=== PATIENT | female | born 1960 | race Caucasian/White ===

== ENCOUNTER 2023-04-26 09:38 | Emergency (ER) | payer BC, SELFPAY ==
[2023-04-26] VITALS (8 sets, daily range): BP systolic 141–166; BP diastolic 75–83; PULSE 66–76; RESP 11–18; TEMP 36.2; O2SAT 99–100
--- NOTE | ~2023-04-26 | XR_ITS ---
EXAMINATION: XR thoracic spine 2V DATE: 04/26/2023 13:11 INDICATION: Thoracic compression fractures seen on chest x-ray TECHNIQUE: One AP, lateral and lateral swimmer's views of the thoracic spine were obtained. COMPARISON: Chest radiograph dated 04/26/2023 FINDINGS: 10 degrees mid thoracic levocurvature. Sagittal alignment is normal. Age-indeterminate T7 compression fracture with one third anterior vertebral body height loss. Remaining vertebral body heights are no rmal. Mild disc height loss at multiple levels throughout the thoracic spine. Visualized portions of the lungs are clear with no pneumothorax or pleural effusion. IMPRESSION: 1. Age-indeterminate T7 compression fracture with one third anterior vertebral body height loss. Reviewed, dictated and finalized at location A.
--- NOTE | ~2023-04-26 | XR_ITS ---
EXAMINATION: XR chest 2V DATE: 04/26/2023 10:25 INDICATION: Lightheadedness TECHNIQUE: PA and lateral views of the chest are obtained. COMPARISON: None available FINDINGS: The lungs are free of acute opacities. No pleural effusion or pneumothorax. The cardiomedia stinal silhouette is normal. There is a compression fracture of T7 with approximately 50% loss of ant erior vertebral body height. IMPRESSION: 1. No acute cardiopulmonary abnormality. 2. Age indeterminate T7 compression fracture. Reviewed, dictated and finalized at location L.
--- NOTE | 2023-04-26 09:42 | ECG_ITS ---
Measurements Intervals [place] Rate: 66 P: 49 KS: 157 QRS: 51 QRSD: 90 T: 55 QT: 381 QTc: 400 Interpretive Statements SINUS RHYTHM BASELINE ARTIFACT- I, III, AVR, AVL, AVF, V4 NORMAL ECG NO PREVIOUS ECG AVAILABLE FOR COMPARISON Electronically Signed On 04-26-2023 10:45:52 CDT by Danilo Weiss D.O.
--- NOTE | 2023-04-26 09:51 | ED.DIZZY ---
HPI - Dizziness General Chief Complaint: Dizziness Stated Complaint: chest pain Time Seen by Provider: 04/26/23 09:43 Source: patient Mode of arrival: EMS Limitations: no limitations History of Present Illness HPI Narrative: This is a 62-year-old female that presents to the emergency department for lightheadedness. Reports she was working out this morning and started to feel lightheaded. She also noted an achy pain in her back between her shoulder blades. She tried to sit down and rest and continued to feel lightheaded. She took her blood pressure and it was elevated. She then took an extra dose of her losartan. She continued to feel lightheaded and started to feel some pressure in her chest. She then called 911. She was transported to the ER for further evaluation. She does report she had not eaten anything before working out this morning. She has been doing a intermittent fasting diet. Denies fever, cough, shortness of breath, recent travel or surgery, numbness or weakness. Related Data Allergies Allergy/AdvReac Type Severity Reaction Status Date / Time No Known Allergies Allergy Verified 04/26/23 09:51 Review of Systems Review of Systems: CONSTITUTIONAL: Denies fever EYES: Denies visual changes CARDIOVASCULAR: Reports chest pain. Denies palpitations, or edema. RESPIRATORY: Denies cough or dyspnea. GASTROINTESTINAL: Denies abdominal pain, nausea, vomiting GENITOURINARY: Denies dysuria or hematuria. MUSCULOSKELETAL: Reports back pain, joint pain, and myalgia. NEUROLOGIC: Denies numbness, or weakness. All systems reviewed & are unremarkable except as noted in HPI and below PMFSH Past Medical History Medical History (Updated 04/26/23 @ 13:05 by Danielle Dwons PA-C) History of hyperlipidemia History of hypertension Social History Social History (Updated 04/26/23 @ 10:13 by Danielle Downs PA-C) Smoking status: Never smoker Exam Narrative: GENERAL: Well-appearing, well-nourished, and in no acute distress. HEAD: Normocephalic, atraumatic. EYES: PERRLA and EOMI. ENT: Nares clear, no rhinorrhea or epistaxis. Mucous membranes moist. Oropharynx without tonsillar hypertrophy exudate or other lesions. Bilateral TMs pearly [place] non-bulging NECK: Supple. No adenopathy or masses. No JVD CHEST: Clear to auscultation. No respiratory distress. No wheezes rales or rhonchi HEART: Regular rate and rhythm. No murmur heard. Normal peripheral pulses. EXTREMITIES: Normal range of motion. No edema. SKIN: Warm, dry, no rash. NEURO: No focal deficits. Alert and oriented x3. Cranial nerves II through XII grossly intact. Normal [id number]. Normal [id number]. Normal gait PSYCH: Normal mood and affect Course Course Emergency Course: Patient and family updated on work-up and agree with plan of care Consultations Consultation #1: Spoke with Dr. Metcalf about patient and workup who will follow up in clinic for further evaluation of electrolyte derangements Date: 04/26/23 Consultation #2: Spoke with Dr. Simpson about patient and workup who will follow up in clinic. Will get dedicated thoracic spine films so they are able to repeat and compare when she follows up. She will get called for an appointment Date: 04/26/23 Vital Signs Vital signs: Vital Signs Temperature 97.1 F L 04/26/23 09:43 Pulse Rate 72 04/26/23 09:43 Respiratory Rate 18 04/26/23 09:43 Blood Pressure 165/83 H 04/26/23 09:43 Pulse Oximetry 99 04/26/23 09:43 Oxygen Delivery Room Air 04/26/23 09:43 Temperature 97.1 F L 04/26/23 09:43 Pulse Rate 66 04/26/23 12:46 Respiratory Rate 11 L 04/26/23 12:46 Blood Pressure 141/75 H 04/26/23 12:46 Pulse Oximetry 100 04/26/23 12:46 Oxygen Delivery Room Air 04/26/23 09:43 MDM - Dizziness MDM Narrative Medical decision making narrative: Patient presents to the emergency department for an episode of lightheadedness today. She is afebrile and nontoxic-appearing. He
[2023-04-26 10:15] LABS: Basophils Absolute Auto 0.1 K/mm3 (0.0-0.1); Basophils Percent Auto 0.8 % (0.2-1.2); Eosinophils Absolute Auto 0.1 K/mm3 (0-0.3); Eosinophils Percent Auto 1.3 % (0-4.4); Hematocrit 40.2 % (37.0-47.0); Hemoglobin 13.5 g/dL (12.0-15.0); Immature Granulocyte Absolute 0.02 K/mm3 (0.00-0.031); Immature Granulocyte Percent A 0.3 % (0-0.5); Lymphocytes Absolute Auto 1.48 K/mm3 (0.9-3.2); Lymphocytes Percent Auto 23.9 % (18.3-44.2); Mean Corpuscular HGB Conc 33.6 g/dl (32-36); Mean Corpuscular Hemoglobin 33.1 pg (26-34); Mean Corpuscular Volume 98.5 fl (80-100); Mean Platelet Volume 10.7 fl (7.4-10.4); Monocytes Absolute Auto 0.7 K/mm3 (0.1-0.6); Monocytes Percent Auto 10.7 % (2.6-8.5); Neutrophils Absolute Auto 3.9 K/mm3 (1.3-6.7); Platelet Count Result 244 k/mm3 (150-375); Red Blood Count 4.08 M/mm3 (4.2-5.4); Red Cell Distribution Width 14.7 % (11.5-14.5); White Blood Count 6.2 K/mm3 (4.5-10.0)
[2023-04-26 10:28] LABS: Appearance Urine Clear (Clear); Bilirubin Urine Negative (Negative); Blood Urine Negative (Negative); Color Urine Yellow (Yellow); Glucose Urine UA Negative (Negative); Ketones Urine Negative (Negative); Leukocyte Esterase Ur Negative LEU/UL (Negative); Nitrate Urine Negative (Negative); Protein Urine Negative (Negative); Specific Grav Ur 1.004 (1.001-1.035); Urobilinogen Urine 0.2 mg/dL (<2.0)
[2023-04-26 10:29] LABS: Alanine Aminotransferase 24 U/L (6-35); Albumin Level 4.9 g/dL (3.5-5.1); Alkaline Phosphatase 57 U/L (38-126); Anion Gap 3 mmol/L (8-16); Aspartate Amino Transferase 41 U/L (14-36); Bilirubin,Total 0.7 mg/dL (0.2-1.3); Blood Urea Nitrogen 10 mg/dL (7-17); Calcium 10.1 mg/dL (8.4-10.2); Carbon Dioxide 32 mmol/L (22-30); Chloride 94 mmol/L (98-107); Estimated CRCL calculation 79 ml/min; Estimated Glomerular Filt Rate > 60; Glucose 93 mg/dL (65-110); Potassium 5.2 mmol/L (3.4-5.0); Sodium 129 mmol/L (137-145)
[2023-04-26 10:31] LABS: Add Urine Microscopic? NO
[2023-04-26 10:41] LABS: Troponin I < 0.012 ng/mL (0.000-0.034)
[2023-04-26] MEDS: SODIUM CHLORIDE 0.9% IV 1,000 ML 999 ML IV CONT (10:43)
== END 2023-04-26 13:15 | disposition home or self-care (01) ==
PROVIDERS: Preventive Medicine Aerospace Medicine; Emergency Provider Physician Assistant; PCP Hospitalist
DX: S22.060A Wedge compression fracture of T7-T8 vertebra, initial encounter for closed fracture (principal); I10 Essential (primary) hypertension; R42 Dizziness and giddiness; E87.5 Hyperkalemia; E87.1 Hypo-osmolality and hyponatremia; E78.5 Hyperlipidemia, unspecified; X50.0XXA Overexertion from strenuous movement or load, initial encounter
CPT/HCPCS: 36415; 71046; 72070; 80053; 81003; 84484; 85025; 93005; 96360; 96361; 99284; J7030

== ENCOUNTER → 2023-06-16 13:06 | Outpatient (CLI) | payer BC, SELFPAY ==
--- NOTE | ~2023-06-16 | XR_ITS ---
EXAMINATION: XR thoracic spine 2V DATE: 06/16/2023 13:18 INDICATION: T7 compression fracture. TECHNIQUE: 2 views of thoracic spine were obtained. COMPARISON: Thoracic spine radiographs 04/26/2023 FINDINGS: There is 5 degrees levocurvature of thoracic spine. There is a compression fracture of T7 w ith 1/5 loss of height. Intervertebral disc heights are normal. There are endplate osteophytes at mul tiple levels. IMPRESSION: 1. Stable compression fracture of T7, likely subacute or chronic. Reviewed, dictated and finalized at location E.
== END ==
PROVIDERS: PCP Neurological Surgery; Visit Provider Neurological Surgery
DX: S22.060D Wedge compression fracture of T7-T8 vertebra, subsequent encounter for fracture with routine healing (principal); X58.XXXD Exposure to other specified factors, subsequent encounter
CPT/HCPCS: 72070

== ENCOUNTER 2025-04-21 21:05 | Emergency (ER) | payer BC, SELFPAY ==
[2025-04-21] VITALS (13 sets, daily range): BP systolic 153–199; BP diastolic 68–101; PULSE 60–68; RESP 12–18; TEMP 36.4; O2SAT 96–100
--- NOTE | ~2025-04-21 | XR_ITS ---
Portable chest x-ray Comparison: 04/26/2023 Clinical History: Lightheaded Findings: Lungs are clear, without focal consolidation or pleural effusion. Cardiomediastinal silho uette is stable. Bones and soft tissues are unremarkable. Impression: Normal chest. Reviewed, dictated and finalized at location . Impression: Normal chest.
--- OUTSIDE RECORDS SUMMARY | 2025-04-21 21:06 | XMS_ITS | Referral Summary ---
Author Organization [facility] Address [address] [place] [address] Phone Care Team Providers Care Bankruptcy Judge Name Role Phone Neymar Metcalf MD Primary Care Provider [phone] Allergies No known active allergies Medications acetaminophen (TYLENOL) 325 mg tablet Take 2 tablets (650 mg total) by mouth every 6 (six) hours as needed for pain Active cholecalciferol (VITAMIN D-3) 5,000 unit tablet Take by mouth daily Active ivp-B8-[id number]-zi my-rww-xhtz-bor 600 mg calcium- 800 unit-50 mg tablet Take by mouth daily Active multivitamin tabletIndicatio ns:Vitamin Deficiency Prevention Take 1 tablet by mouth daily Active ascorbic acid-vitamin E-biotin 7.5-7.5-1,250 mg-unit-mcg tablet,chewable Take by mouth daily Hair skin and nails daily Active fish oil-dha-epa 1,200-144-216 mg capsule Take by mouth daily Active lwontobq-ibjf-p tv0-T-cxbe-bosw 750 mg-644 mg- 30 mg-1 mg tablet Take by mouth daily OSTEOBIFLEX Active collagen, hydrolysate, bovine, (collagen, hydr, bovine,, bulk,) 100 % powder daily OTC powder Act jj losartan (COZAAR) 50 mg tablet Take 2 tablets (100 mg total) by mouth daily 180 tablet 3 5 Active rosuvastatin (CRESTOR) 10 mg tablet TAKE 1 TABLET BY MOUTH EVERY DAY 100 tablet 1 5 Active Active Problems Problem Noted Date Diagnosed Date Personal history of colonic polyps 08/03/2023 Strain of levator scapulae muscle, initial encou nter 07/18/2023 Assessment & Plan (07/18/2023 3:54 PM CDT): Tight trps and levator scapulae musculature. Likely trigger points. Discussed exercises to address. If not improved w home treatments will discuss PT Compression fracture of body of thoracic vertebr a 05/24/2023 Assessment & Plan (05/10/2024 1:01 PM CDT): Stable, well controlled; no further symptoms; healing well Assessment & Plan (11/01/2023 2:15 PM COMPRESSOR OPERATOR ADJUSTER): Stable, well controlled; no significant back pain, patient reports some changes No limitations to activity, no severe symptoms Assessment & Plan (07/18/2023 10:13 AM CDT): denies current associated pain. No LE weakness/tingling/numbness. No bowel or bladder changes. Taking calcium and vit D supplements. Assessment & Plan (06/13/2023 4:51 PM CDT): Stable, patient reports pain is generally limited, has been released to most activities, though still is limiting higher impact activities Continue vitamin D3 5000 units daily; calcium 1200 mg daily Assessment & Plan (05/24/2023 3:45 PM CDT): Continues to have pain in thoracic spine; improving; discussed with patient regular management, including decreased activity bracing as needed Continue with pain management as needed Continue vitamin-D and calcium supplements Will evaluate for underlying cause of compression fracture Osteopenia of hip 05/18/2023 Overview (05/18/2023): 04/2023- -1.6, but has a compression fx in upper back. Assessment & Plan (12/26/2024 12:58 PM CDT): Stable, no falls or fracture, compression fraction upper back was likely not due to osteopenia but mechanical in nature Continue calcium and vitamin-D supplements, regular physical activity Assessment & Plan (05/10/2024 1:01 PM CDT): Stable compression fracture and thoracic vertebrae Continue with calcium and vitamin-D Assessment & Plan (04/09/2024 9:18 AM CDT): We discussed sending her to the [facility] at [place] She declines. Will continue with her calcium and vit D She has started to exercise more run/walking. Will plan to repeat in 2023 Assessment & Plan (11/01/2023 2:15 PM COMPRESSOR OPERATOR ADJUSTER): Compression fracture in upper back; continue to monitor; encouraged calcium and vitamin-D; continue to determine if patient would benefit from medicine for osteoporosis to reduce risk of fracture Assessment & Plan (06/13/2023 4:51 PM CDT): Stable, well controlled; no significant pain limitations due to hip pain; improvement related to physical therapy Well woman exam 01/25/2022 Overview (04/09/2024): Lab: Pap:all good last 2022 wnl Labs with pcp Lynne: due Colonoscopy:2022- she is not sure when she is supposed to go back. BMD:2022 osteopenia. Gardasil: Assessment & Plan (04/09/2024 9:18 AM CDT): Pap done. RTO 12m. I will send the results to the portal. If she has not heard in a week, to call the office. Assessment & Plan (04/04/2023 3:36 PM CDT): Pap done. RTO 12m. I will send the results to the portal. If she has not heard in a week, to call the office. Assessment & Plan (01/25/2022 11:14 AM CDT): Pap done. RTO 12m. I will send the results to the portal. If she has not heard in a week, to call the office. Hypertension, essential 01/04/2022 Assessment & Plan (12/26/2024 12:58 PM CDT): Stable, well controlled, blood pressure mildly elevated today; remain elevated on recheck At this time continue losartan 100 mg daily; will continue to assess in 6 months, if remains elevated, may need additional therapies Assessment & Plan (06/26/2024 2:22 PM CDT): Stable, well controlled; patient is not able to tolerate hydrochlorothiazide due to cramping Continue losartan 50 mg daily Patient reports no chest pain or pressure; and recheck blood pressures returned to normal Patient working on dietary changes to limit caffeine and sodium intake; patient is physically active Assessment & Plan (05/10/2024 1:01 PM CDT): Stable, not well controlled, blood pressure above goal; no chest pain or pressure Patient reports increase intake of salty foods and sugar over the past weekend Does not check often at home Continue hydrochlorothiazide 12.5 mg daily, losartan 50 mg b.i.d. Assessment & Plan (11/01/2023 2:15 PM COMPRESSOR OPERATOR ADJUSTER): Stable, generally well controlled; blood pressure elevated today; patient reports not eating healthier exercising during past 2 weeks No chest pain or pressure Now returning to regular diet Continue losartan 50 mg b.i.d.; continue to monitor closely Assessment & Plan (07/18/2023 3:53 PM CDT): BP well controlled. Currently taking losartan 100 mg Qday. Continue current management Continue losartan 50 mg b.i.d. Assessment & Plan (06/13/2023 4:50 PM CDT): Not well controlled; blood pressure elevated today; elevated on recheck Patient reports home systolic measurements are usually in the 120s to 130; reports no chest pain pressure orthostatics Continue losartan 50 mg b.i.d.; continue to work on lifestyle changes, including black garlic and regular physical activity including increasing intensity aerobic activity Follow-up in 4 weeks; blood pressure remains elevated will start 2nd medication Assessment & Plan (05/24/2023 3:45 PM CDT): Blood pressure elevated today in clinic; patient reports elevated blood pressures recently May be secondary to chronic pain Continue losartan 50 mg b.i.d.; will continue to evaluate as pain resolves Assessment & Plan (01/10/2023 4:56 PM CDT): bp elevated initially; improved on recheck No chest pain or pressure, no headaches Continue with home measurements, if elevated at home too, would recommend increase dose of medicatoin Continue Losartan 50 mg daily Assessment & Plan (07/12/2022 9:38 AM CDT): Stable, well controlled; blood pressure at target, patient reports no chest pains headaches except for TMJ Continue losartan 50 mg daily Assessment & Plan (04/26/2022 4:36 PM CDT): Stable, well controlled; blood pressure at target today Patient reports that in general her blood pressure spikes in the afternoon Will adjust medications; take losartan 25 mg twice daily, in morning and early afternoon to help control late afternoon she has Will adjust medication with next appointment if patient continues to have elevated blood pressures Assessment & Plan (01/04/2022 3:45 PM CDT): Stable, well controlled; blood pressure at target today, patient reports no chest pain does peripheral edema Continue losartan 25 mg daily Dyslipidemia 01/04/2022 Assessment & Plan (12/26/2024 12:58 PM CDT): Total cholesterol effective, LDL at goal; HDL high; continue to monitor cholesterol levels regularly, continue with current dietary and activity levels Assessment & Plan (05/10/2024 1:01 PM CDT): Stable, well controlled, elevated HDL with normal LDL Will continue to monitor closely, continue rosuvastatin 10 mg daily Assessment & Plan (11/01/2023 2:15 PM COMPRESSOR OPERATOR ADJUSTER): Stable, well controlled; HDL cholesterol elevated causing elevated total cholesterol Continue rosuvastatin 10 mg daily Assessment & Plan (07/18/2023 3:54 PM CDT): Elevated total Cholesterol, due to high HDL; normal LDL Continue rosuvastatin 10 mg daily Assessment & Plan (06/13/2023 4:50 PM CDT): Stable, well controlled Elevated total cholesterol with near optimal LDL cholesterol; continue rosuvastatin 10 mg daily Assessment & Plan (01/10/2023 4:56 PM CDT): Stable, well controlled; no myalgias Continue Rosuvastatin 10 mg daily Will get CT Coronary Calcium Score to evaluate for risk Assessment & Plan (07/12/2022 9:38 AM CDT): Stable, elevated total cholesterol with normal LDL, HDL at 110 Encouraged continued low-fat high-fiber diet; appropriate aerobic exercise Will continue to monitor Assessment & Plan (04/26/2022 4:36 PM CDT): Stable, well controlled; continue with Crestor 10 mg daily Assessment & Plan (01/04/2022 3:45 PM CDT): Stable, draw labs today to evaluate for control of cholesterol levels; patient reports generally has low-fat high-fiber diet Continue Crestor 10 mg daily as patient reports no side effects from medication Dupuytren's contracture of both hands 01/04/2022 Assessment & Plan (12/26/2024 12:58 PM CDT): Stable, continues to deformity of left hand; was not able to get injections due to coverage; continue to follow with Plastic surgery for treatment options; patient would prefer nonsurgical options Assessment & Plan (05/10/2024 1:00 PM CDT): Stable, mild contractures and left ring fingers; will refer to hand surgery for further evaluation Assessment & Plan (01/10/2023 4:57 PM CDT): Continues to have contractures with limited loss of mobility Right fifth digit has flexion due to recent fracture Continue to monitor Assessment & Plan (01/04/2022 3:46 PM CDT): Patient has contractures of both hands, is not yet 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, but will continue to monitor given a notable according flexor tendon sheath in both hands Immunizations Immunization Administration Dates Next Due Influenza, Quadrivalent, Spl it, Preservative Free, Intramuscular 07/18/2023 Influenza, Unspecified 12/26/2024(Deferr ed: Patient Refused),04/29/2023(Deferred: Patient Refused),06/17/2022(Deferred: Patient Refused),01/04/2022(Deferred: Patient Refused),10/17/2021(Deferred: Patient Refused),10/17/2020(Deferred: Patient Refused) Tdap 02/25/2021 Social History Tobacco Use Types Packs/Day Years Used Date Smoking Tobacco: Former Cigarettes Q uit: 1994 Smokeless Tobacco: Never Tobacco Cessation:Counseling Given: Not Answered Comments:I started smoking in College and stopped at age 35 Humiliation, Afraid, Rape, and Kick questionnair e Answer Date Recorded Within the last year, have y ou been afraid of your partner or ex-partner? No 07/18/2023 Within the last year, have y ou been humiliated or emotionally abused in other ways by your partner or ex-partner? No Within the last year, have y ou been kicked, hit, slapped, or otherwise physically hurt by your partner or ex-partner? No 07/18/2023 Within the last year, have y ou been raped or forced to have any kind of sexual activity by your partner or ex-partner? No 07/18/2023 Social Connection and Isolat ion Panel [NHANES] Answer Date Recorded In a typical week, how many times do you talk on the phone with family, friends, or neighbors? More than three times a week 07/18/2023 How often do you get togethe r with friends or relatives? Once a week 07/18/2023 How often do you attend [facility] or catholic services? More than 4 times per year 07/18/2023 Do you belong to any clubs o r organizations such as taoist groups, unions, fraternal or athletic groups, or school groups? No 07/18/2023 How often do you attend meet ings of the clubs or organizations you belong to? Never 07/18/2023 Are you , , di vorced, , never , or living with a partner? 07/18/2023 AUDIT-C Answer Date Recorded Q1: How often do you have a drink containing alcohol? 4 or more times a week 07/18/2023 Q2: How many drinks containi ng alcohol do you have on a typical day when you are drinking? 1 or 2 3 Q3: How often do you have si x or more drinks on one occasion? Weekly 07/18/2023 Overall Financial Resource Strain (CARDIA) Answe r Date Recorded How hard is it for you to pa y for the very basics like food, housing, medical care, and heating? Not hard at all 07/18/2023 PHQ-2 Answer Date Recorded PHQ-2 Total Score (If total score is 3 or more points, staff should administer the PHQ-9) 0 04/24/2024 Exercise Vital Sign Answer Date Recorde d On average, how many days pe r week do you engage in moderate to strenuous exercise (like a brisk walk)? 7 days 07/18/2023 On average, how many minutes do you engage in exercise at this level? 90 min 07/18/2023 Hunger Vital Sign Answer Date Recorded Within the past 12 months, y ou worried that your food would run out before you got the money to buy more. Never true 07/18/20 23 Within the past 12 months, t he food you bought just didn't last and you didn't have money to get more. Never true 07/18/2023 PRAPARE - Transportation Answer Date Re corded In the past 12 months, has l ack of transportation kept you from medical appointments or from getting medications? No 11/2022 In the past 12 months, has l ack of transportation kept you from meetings, work, or from getting things needed for daily living? No 07/18/2023 Housing Stability Vital Sign Answer Seth e Recorded In the last 12 months, was t here a time when you were not able to pay the mortgage or rent on time? No 07/18/2023 In the last 12 months, how many places have you lived? 1 07/18/2023 In the last 12 months, was t here a time when you did not have a steady place to sleep or slept in a fpc (including now)? No 07/18/2023 Personal Safety Answer Date Recorded Have you ever been in or are you currently in a harmful physical or emotional relationship or is someone making you feel afraid or unsafe? Denies 10/06/2023 Comments No Sex and Gender Information Value Date Recorded Sex Assigned at Not on file Legal Sex Female 11:18 AM COMPRESSOR OPERATOR ADJUSTER Gender Identity Female 04/22/2022 11:34 AM CDT Sexual Orientation Straight 04/22/2022 11 :34 AM CDT Last Filed Vital Signs Vital Sign Reading Time Taken Comments Blood Pressure 144/84 12/26/2024 11:38 AM CDT Pulse 50 12/26/2024 11:21 AM CDT Temperature 36.3 C (97.4 F) 12/26/2024 11:21 AM CDT Respiratory Rate 18 12/26/2024 11:21 AM CDT Oxygen Saturation 99% 12/26/2024 11:21 AM CDT Inhaled Oxygen Concentration - - Weight 64.9 kg (143 lb) 12/26/2024 11:21 AM CDT Height 160 cm (5' 3) 12/26/2024 11:21 AM CDT Body Mass Index 25.33 12/26/2024 11:21 AM CDT Plan of Treatment Not on file Procedures Procedure Name Priority Date/Time Associated Diagnosis Comments MAMMOGRAPHY Routine 08/28/2024 1:24 PM COMPRESSOR OPERATOR ADJUSTER PAP AND HPV, REFLEX TO HPV GENOTYPES Routine 04/09/2024 10:44 AM CDT Well woman exam COLONOSCOPY 10/06/2023 8:29 AM COMPRESSOR OPERATOR ADJUSTER HEPATITIS C ANTIBODY Routine 01/04/2022 11:44 AM CDT Encounter for hepatitis C screening test for low risk patient from Last 3 Months or Most Recently Relevant to Health Maintenance Results * HM MAMMOGRAPHY (08/28/2024 1:24 PM COMPRESSOR OPERATOR ADJUSTER) us Historical Provider HEALTH MAINTENANCE Final Result * Pap and HPV, reflex to HPV Genotypes (04/09/2024 10:44 AM CDT) CLINICAL INFORMATION: [facility] Comment: Normal exam WELL WOMAN EXAM LMP [facility] Comment:UNKNOWN Previous Pap [facility] Comment:NONE GIVEN Prev. Bx [facility] Comment:NONE GIVEN SOURCE: [facility] Comment:Cervix, Endocervix Pap, specimen adequacy [facility] Comment:SATISFACTORY FOR RIOS LUATION HPV interp [facility] Comment: Cytology Results: Negative for intraepithelial lesion or malignancy. Atrophic pattern; predominantly parabasal cells COMMENTS [facility] Comment: This Pap test has been evaluated with computer assisted technology. Sheet Metal Duct Installer Apprentice [facility] Comment: GIFTY RAWLS(ASCP) CT Screening Location: [place] [address] [place] [address] Comment [facility] Comment: EXPLANATORY NOTE: The Pap is a screening test for cervical cancer. It is not a diagnostic test and is subject to false negative and false positive results. It is most reliable when a satisfactory sample, regularly obtained, is submitted with relevant clinical findings and history, and when the Pap result is evaluated along with historic and current clinical information. Human papillomavirus DNA, High Risk E6/E7 Not Detected NOT DETECTED [facility] Comment: Not Detected High Risk HPV types (16,18,31,33,35,39,45,51,52, 56,58,59,66,68) were not detected. Other HPV types which cause anogenital lesions may be present. The significance of the other types of HPV in malignant processes has not been established. Methodology: Real Time PCR Thin prep 04/09/2024 10:4 4 AM CDT 04/10/2024 8:49 AM CDT Matilda Salinas MD LAB CYTOLOGY ORDERA BLES Final Result [place] [address] [place] [address] Hoadn [place]nell[address] [address] [place] [address] * COLONOSCOPY (10/06/2023 8:29 AM COMPRESSOR OPERATOR ADJUSTER) Anatomical Region Laterality Modality Other Narrative Procedure Note German Urbano MD - 10/06/2023 8:29 AM CST [facility] Patient Name: Nel Schultz Procedure Date: 10/06/2023 8:29 AM Date of : 1960 Admit Type: Outpatient Age: 62 Gender: Female Attending MD: German Urbano M.D. Room: [facility] 1 Note Status: Finalized Patient Profile: Refer to note in patient chart for documentation of history and physical. Procedure: Colonoscopy Indications: High risk colon cancer surveillance: Personalhistory of colonic polyps, Last colonoscopy: 2018 Referring MD: Neymar Metcalf M.D. Providers: German Urbano M.D. Impression: - Hemorrhoids found on perianal exam. - Diverticulosis in the sigmoid colon. - Melanosis in the colon. - The examination was otherwise normal. - No specimens collected. Recommendation: - Discharge patient to home. - Resume previous diet. - Continue present medications. - Repeat colonoscopy in 5 years for surveillance. - Return to primary care physician as previously scheduled. Medicines: Propofol per Anesthesia Complications: No immediate complications. Estimated Blood Loss: Estimated blood loss: none. Procedure: Pre-Anesthesia Assessment: - This assessment was completed [Time ofAssessment] prior to the administration of sedation. The benefits, risks and alternatives of theprocedure and sedation were discussed and informed consentwas obtained. All questions were answered. Please referto the signed informed consent document in the medical record. The bowel preparation used was Miralax and bisacodyl tablets via single dose instruction. The scope was passed under direct vision. TheColonoscope [id number] was introduced through the anus and advanced to the the cecum, identified by appendiceal orifice and ileocecal valve. The colonoscopy was performed without difficulty. The patient tolerated the procedure well. The qualityof the bowel preparation was good. The ileocecalvalve, appendiceal orifice, and rectum werephotographed. Findings: Hemorrhoids were found on perianal exam. A few small-mouthed diverticula were found in the sigmoid colon. A diffuse area of moderate melanosis was found in the entire colon. The exam was otherwise without abnormality. Electronically signed by German Urbano M.D. German Urbano M.D. 10/06/2023 10:12:45 AM Number of Addenda: 0 Note Initiated On: 10/06/2023 8:29 AM Procedure Code(s): --- Professional --- G0105, Colorectal cancer screening; colonoscopy on individual at high risk --- Technical --- G0105, Colorectal cancer screening; colonoscopy on individual at high risk Diagnosis Code(s): --- Professional --- K57.30, Diverticulosis of large intestine without perforation orabscess without bleeding K63.89, Other specified diseases of intestine K64.9, Unspecified hemorrhoids Z86.010, Personal history of colonic polyps --- Technical --- K57.30, Diverticulosis of large intestine without perforation orabscess without bleeding K63.89, Other specified diseases of intestine K64.9, Unspecified hemorrhoids Z86.010, Personal history of colonic polyps CPT copyright 2020 [employer]. All rights reserved. The codes documented in this report are preliminary and upon career services representative reviewmay be revised to meet current compliance requirements. Recognized by the [employer] for promoting quality in endoscopy us German Urbano MD ENDOSCOPY PROCEDURES Final Re sult * Hepatitis C antibody (01/04/2022 11:44 AM CDT) Hep C Ab Nonreactive Nonreactive [facility] Comment: Interpretive Data Nonreactive: Antibodies to HCV not detected. Does NOT exclude the possibility of recent exposure to HCV. Equivocal: Equivocal for HCV antibodies. Supplemental molecular testing will be automatically performed to determine infection status in accordance with current CDC screening recommendations. Reactive: Positive for HCV antibodies. This may represent current or past HCV infection. Supplemental molecular testing will be automatically performed to determine current infection status in accordance with current CDC screening recommendations. Interpretive data was last revised on 2020. Blood 01/04/2022 11:4 4 AM CDT 01/04/2022 6:08 PM CDT us Neymar Metcalf MD LAB MICROBIOLOGY - GENERA L ORDERABLES Final Result [facility] [address] Department [place] [address] from Last 3 Months or Most Recently Relevant to Health Maintenance Insurance WOOD ACCESS ANTHEM ACCESS ANTHEM ACCESS Advance Directives For more information, please contact: [phone] * Full Code (Latest Code Status on File) Date Activated Date Inactivated Comments 10/06/2023 8:32 AM 10/06/2023 2:57 PM * Full Code Date Activated Date Inactivated Comments 10/06/2023 8:32 AM 10/06/2023 8:32 AM Care Teams Bankruptcy Judge Relationship Specialty Start Date End [place] [address] PCP - General Family Medicine 01/04/22
--- OUTSIDE RECORDS SUMMARY | 2025-04-21 21:06 | XMS_ITS | Clinical Summary ---
Author Organization [facility] Address [address] [place] [address] Phone Care Team Providers Care Social Insurance Adviser Name Role Phone Neymar Metcalf MD Primary Care Provider [phone] [phone] Allergies No known active allergies Medications acetaminophen (TYLENOL) 325 mg tablet Take 2 tablets (650 mg total) by mouth every 6 (six) hours as needed for pain Active cholecalciferol (VITAMIN D-3) 5,000 unit tablet Take by mouth daily Active zfj-V8-cvp49-zi uj-ylv-rxhb-bor 600 mg calcium- 800 unit-50 mg tablet Take by mouth daily Active multivitamin tabletIndicatio ns:Vitamin Deficiency Prevention Take 1 tablet by mouth daily Active ascorbic acid-vitamin E-biotin 7.5-7.5-1,250 mg-unit-mcg tablet,chewable Take by mouth daily Hair skin and nails daily Active fish oil-dha-epa 1,200-144-216 mg capsule Take by mouth daily Active ccnkkufp-vtym-v xg9-W-qvww-bosw 750 mg-644 mg- 30 mg-1 mg tablet [...] well Assessment & Plan (11/01/2023 2:15 PM CAUSTIC STRENGTH INSPECTOR): Stable, well controlled; no significant back pain, [...] sending her to the [facility] at [place] She declines. Will continue with her calcium and vit D She has started to exercise more run/walking. Will plan to repeat in 2023 Assessment & Plan (11/01/2023 2:15 PM CAUSTIC STRENGTH INSPECTOR): Compression fracture in upper back; continue to [...] b.i.d. 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 given a notable according flexor tendon sheath in both hands Immunizations Immunization Administration Dates Next Due Influenza, Quadrivalent, Spl it, Preservative Free, Intramuscular 07/18/2023 Influenza, Unspecified 12/26/2024(Deferr ed: Patient Refused),04/29/2023(Deferred: Patient Refused),06/17/2022(Deferred: Patient Refused),01/04/2022(Deferred: Patient Refused),10/17/2021(Deferred: Patient Refused),10/17/2020(Deferred: Patient Refused) Tdap 02/25/2021 Surgical History Surgery Date Site/Laterality Comments CATARACT EXTRACTION, BILATERAL Bilateral COLONOSCOPY 10/17/2018 - 10/16/2019 COLONOSCOPY 10/06/2023 CATARACT EXTRACTION Medical History Medical History Date Comments Hypertension Hyperlipidemia Family History Medical History Relation Name Comments Hypertension Brother Ed Stanley Asthma Daughter Nanci Stanley Heart disease Father Ed Stanley Hypertension Father Ed Stanley Stent Father Ed Stanley Stroke Father Ed Stanley Alzheimer's disease Father's Sister Tatyana Dione Arthritis Mother Hilda Stanley Cancer Mother Hilda Stanley Hypertension Mother Hilda Stanley Mental illness Paternal Grandfather Ed Stanley Miscarriages / Stillbirths Sister Eileen Arabella Relation Name Status Comments Brother Ed Stanley Daughter Nanci Stanley Father Ed Stanley Father's Sister Tatyana Dione Mother Hilda Stanley Paternal Grandfather Ed Stanley Sister Eileen Arabella Social History Tobacco Use Types Packs/Day Years [...] week 07/18/2023 How often do you attend chur or advent services? More than 4 times per year 07/18/2023 Do you belong to any clubs o r organizations such as religious groups, unions, fraternal or athletic groups, or [...] the money to buy more. Never true 10/02/20 23 Within the past 12 months, t [...] place to sleep or slept in a chcf (including now)? No 07/18/2023 Personal Safety Answer Date Recorded Have you ever been in or are you currently in a harmful physical or emotional relationship or is someone making you feel afraid or unsafe? Denies 10/06/2023 Comments No Sex and Gender Information Value Date Recorded Sex Assigned at Not on file Legal Sex Female 11:18 AM CAUSTIC STRENGTH INSPECTOR Gender Identity Female 04/22/2022 11:34 AM CDT Sexual Orientation Straight 04/22/2022 11 :34 AM CDT Obstetrics History Para Term AB IAB SAB Ectopic Multiple Livin g Live Births 1 1 1 1 1 Date Outcome GA Total Labor Labor/2nd/3rd Weight Sex Type Anes PTL Wandy A1 A5 Name Clin 1996 Term 3.374 kg (7 lb 7 oz) F Vag-S pont Living Last Filed Vital Signs Vital Sign Reading [...] 12/26/2024 11:21 AM CDT Plan of Treatment Health Maintenance Due Date Last Done Comments Zoster Vaccine (1 of 2) 2011 Cervical Cancer Screening 04/09/20252023, 04/04/2023, 01/25/2022 Regular Well Visit/Exam 18-64 04/09/2025 04/09/2024, 04/04/2023, 01/25/2022 Depression Screening 04/24/2025 04/24/2024, 04/09/2024, 10/20/2023, Additional history exists Influenza Vaccine (#1) 2025 07/18/2023 Breast Cancer Screening-Mammogram 08/28/2025 08/28/2024, 03/23/2023 DTaP/Tdap/Td Vaccine (2 - Td or Tdap) 02/25/2031 02/25/2021 Colon Cancer Screening-Colonoscopy 10/06/2033 10/06/2023 Hepatitis C Screening Completed 01/04/2022 Hepatitis B Screening Completed 04/13/2024 Pneumococcal vaccine <65 Aged Out No longer eligible based on patient's age to complete this topic Procedures Procedure Name Priority Date/Time Associated Diagnosis Comments HM MAMMOGRAPHY Routine 08/28/2024 1:24 PM CAUSTIC STRENGTH INSPECTOR PAP AND HPV, REFLEX TO HPV GENOTYPES Routine 04/09/2024 10:44 AM CDT Well woman exam COLONOSCOPY 10/06/2023 8:29 AM CAUSTIC STRENGTH INSPECTOR HEPATITIS C ANTIBODY Routine 01/04/2022 11:44 AM CDT Encounter for hepatitis C screening test for low risk patient from Last 3 Months or Most Recently Relevant to Health Maintenance Results * HM MAMMOGRAPHY (08/28/2024 1:24 PM CAUSTIC STRENGTH INSPECTOR) us Historical Provider HEALTH MAINTENANCE Final Result * Pap and HPV, reflex to HPV Genotypes (04/09/2024 10:44 AM CDT) CLINICAL INFORMATION: [facility] Comment: Normal exam WELL WOMAN EXAM LMP [facility] Comment:UNKNOWN Previous Pap [facility] Comment:NONE GIVEN Prev. Bx [facility] Comment:NONE GIVEN SOURCE: [facility] Comment:Cervix, Endocervix Pap, specimen adequacy [facility] Comment:SATISFACTORY FOR RIOS LUATION HPV interp [facility] Comment: Cytology Results: Negative for intraepithelial lesion or malignancy. Atrophic pattern; predominantly parabasal cells COMMENTS [facility] Comment: This Pap test has been evaluated with computer assisted technology. Jingle Writer Que [facility] Comment: CAK, CT(ASCP) CT Screening Location: [place] [address] [place] [address] Comment [facility] Comment: EXPLANATORY NOTE: The Pap is a [...] High Risk E6/E7 Not Detected NOT DETECTED [place] /S[facility] [place] Comment: Not Detected High Risk HPV types (16,18,31,33,35,39,45,51,52, 56,58,59,66,68) were not detected. Other HPV types which cause anogenital lesions may be present. The significance of the other types of HPV in malignant processes has not been established. Methodology: Real Time PCR Thin prep 04/09/2024 10:4 4 AM CDT 04/10/2024 8:49 AM CDT us Matilda Salinas MD LAB CYTOLOGY ORDERA BLES Final Result [facility] [address] [place] [address] [place] [address] [place] [address] * COLONOSCOPY (10/06/2023 8:29 AM CAUSTIC STRENGTH INSPECTOR) Anatomical Region Laterality Modality Other Narrative Procedure Note German Urbano MD - 10/06/2023 8:29 AM CST [facility] Patient Name: Nel Schultz Procedure Date: 10/06/2023 8:29 AM Date of : 1960 Admit Type: Outpatient Age: 62 Gender: Female Attending MD: German Urbano M.D. Room: [facility] ENDOSCOPY ROOM 1 Note Status: Finalized Patient [...] scope was passed under direct vision. TheColonoscope [id number] was introduced through the anus and advanced [...] history of colonic polyps CPT copyright 2020 [employer]. All rights reserved. The codes documented in this report are preliminary and upon government service executive reviewmay be revised to meet current compliance requirements. Recognized by the [employer] for promoting quality in endoscopy German Urbano MD ENDOSCOPY PROCEDURES Final Re [...] 4 AM CDT 01/04/2022 6:08 PM CDT Neymar Metcalf MD LAB MICROBIOLOGY - GENERA L ORDERABLES Final Result [facility] [id number] [place] [address] from Last 3 Months or Most Recently Relevant to Health Maintenance Insurance [facility] ACCESS ANTHEM ACCESS ANTHEM ACCESS Advance Directives For more information, please contact: [phone] * Full Code (Latest Code Status on File) Date Activated Date Inactivated Comments 10/06/2023 8:32 AM 10/06/2023 2:57 PM * Full Code Date Activated Date Inactivated Comments 10/06/2023 8:32 AM 10/06/2023 8:32 AM Care Teams Social Insurance Adviser Relationship Specialty Start Date End [place] [address] PCP - General Family Medicine 01/04/22
--- OUTSIDE RECORDS SUMMARY | 2025-04-21 22:58 | XMS_ITS | Referral Summary ---
Author Organization [facility] Address [address] [place] [address] Phone Care Team Providers Care Doorshaker Name Role Phone Neymar Metcalf MD Primary Care Provider [phone] [phone] Allergies No known active allergies Medications acetaminophen (TYLENOL) 325 mg tablet Take 2 tablets (650 mg total) by mouth every 6 (six) hours as needed for pain Active cholecalciferol (VITAMIN D-3) 5,000 unit tablet Take by mouth daily Active erl-U7-sru26-zi tx-qmk-cssk-bor 600 mg calcium- 800 unit-50 mg tablet Take by mouth daily Active multivitamin tabletIndicatio ns:Vitamin Deficiency Prevention Take 1 tablet by mouth daily Active ascorbic acid-vitamin E-biotin 7.5-7.5-1,250 mg-unit-mcg tablet,chewable Take by mouth daily Hair skin and nails daily Active fish oil-dha-epa 1,200-144-216 mg capsule Take by mouth daily Active kdwubftl-srju-y ha0-Y-iesc-bosw 750 mg-644 mg- 30 mg-1 mg tablet [...] well Assessment & Plan (11/01/2023 2:15 PM NEUROPSYCHOLOGY DIRECTOR): Stable, well controlled; no significant back pain, [...] sending her to the [facility] at [place] She declines. Will continue with her calcium and vit D She has started to exercise more run/walking. Will plan to repeat in 2023 Assessment & Plan (11/01/2023 2:15 PM NEUROPSYCHOLOGY DIRECTOR): Compression fracture in upper back; continue to [...] b.i.d. 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 or sikh services? More than 4 times per year 07/18/2023 Do you belong to any clubs o r organizations such as scientologist groups, unions, fraternal or athletic groups, or [...] on file Legal Sex Female 11:18 AM NEUROPSYCHOLOGY DIRECTOR Gender Identity Female 04/22/2022 11:34 AM CDT [...] Diagnosis Comments MAMMOGRAPHY Routine 08/28/2024 1:24 PM NEUROPSYCHOLOGY DIRECTOR PAP AND HPV, REFLEX TO HPV GENOTYPES Routine 04/09/2024 10:44 AM CDT Well woman exam COLONOSCOPY 10/06/2023 8:29 AM NEUROPSYCHOLOGY DIRECTOR HEPATITIS C ANTIBODY Routine 01/04/2022 11:44 AM CDT Encounter for hepatitis C screening test for low risk patient from Last 3 Months or Most Recently Relevant to Health Maintenance Results * HM MAMMOGRAPHY (08/28/2024 1:24 PM NEUROPSYCHOLOGY DIRECTOR) us Historical Provider HEALTH MAINTENANCE Final Result * Pap and HPV, reflex to HPV Genotypes (04/09/2024 10:44 AM CDT) CLINICAL INFORMATION: [facility] Comment: Normal exam WELL WOMAN EXAM LMP [facility] Comment:UNKNOWN Previous Pap [facility] Comment:NONE GIVEN Prev. Bx [facility] Comment:NONE GIVEN SOURCE: [facility] Comment:Cervix, Endocervix Pap, specimen adequacy [facility] Comment:SATISFACTORY FOR RIOS LUATION HPV interp [facility] Comment: Cytology Results: Negative for intraepithelial lesion or malignancy. Atrophic pattern; predominantly parabasal cells COMMENTS [facility] Comment: This Pap test has been evaluated with computer assisted technology. Pump Assembler [facility] Comment: GIFTY RAWLS(ASCP) CT Screening Location: [place] [address] [place] [address] Comment [facility] Comment: EXPLANATORY NOTE: The Pap is [...] AM CDT 04/10/2024 8:49 AM CDT Matilda Salnias MD LAB CYTOLOGY ORDERA BLES Final Result [place] [address] [place] [address] Hodan [place] [address] [address] [place] [address] * COLONOSCOPY (10/06/2023 8:29 AM NEUROPSYCHOLOGY DIRECTOR) Anatomical Region Laterality Modality Other Narrative Procedure Note German Urbano MD - 10/06/2023 8:[address] [facility] Patient Name: Nel Schultz Procedure Date: 10/06/2023 8:29 AM Date of : 1960 Admit Type: Outpatient Age: 62 Gender: Female Attending MD: German Urbano M.D. Room: [facility] ENDOSCOPY [facility]OM 1 Note Status: Finalized Patient [...] scope was passed under direct vision. TheColonoscope [id number] was introduced through the anus and advanced [...] history of colonic polyps CPT copyright 2020 [employer]. All rights reserved. The codes documented in this report are preliminary and upon brake repairer air reviewmay be revised to meet current compliance requirements. Recognized by the [place] for promoting quality [...] - GENERA L ORDERABLES Final Result [facility] [id number] [place] [address] from Last 3 Months or Most Recently Relevant to Health Maintenance Insurance [facility] Address: [id number] [place] [address] ANTHEM ACCESS ANTHEM ACCESS Advance Directives For more information, please contact: [phone] * Full Code (Latest Code Status on File) Date Activated Date Inactivated Comments 10/06/2023 8:32 AM 10/06/2023 2:57 PM * Full Code Date Activated Date Inactivated Comments 10/06/2023 8:32 AM 10/06/2023 8:32 AM Care Teams Doorshaker Relationship Specialty Start Date End [place] [address] PCP - General Family Medicine 01/04/22
--- OUTSIDE RECORDS SUMMARY | 2025-04-21 22:58 | XMS_ITS | Clinical Summary ---
Author Organization [facility] Address [address] [place] [address] Phone Care Team Providers Care Ordering Box Operator Name Role Phone Neymar Metcalf MD Primary Care Provider [phone] [phone] Allergies No known active allergies Medications acetaminophen (TYLENOL) 325 mg tablet Take 2 tablets (650 mg total) by mouth every 6 (six) hours as needed for pain Active cholecalciferol (VITAMIN D-3) 5,000 unit tablet Take by mouth daily Active teq-H6-epb57-zi hk-zxv-rbys-bor 600 mg calcium- 800 unit-50 mg tablet Take by mouth daily Active multivitamin tabletIndicatio ns:Vitamin Deficiency Prevention Take 1 tablet by mouth daily Active ascorbic acid-vitamin E-biotin 7.5-7.5-1,250 mg-unit-mcg tablet,chewable Take by mouth daily Hair skin and nails daily Active fish oil-dha-epa 1,200-144-216 mg capsule Take by mouth daily Active yiuerymb-ecyu-w ym9-S-pnok-bosw 750 mg-644 mg- 30 mg-1 mg tablet [...] well Assessment & Plan (11/01/2023 2:15 PM DISK SHARPENER): Stable, well controlled; no significant back pain, [...] sending her to the [facility] at [place] She declines. Will continue with her calcium and vit D She has started to exercise more run/walking. Will plan to repeat in 2023 Assessment & Plan (11/01/2023 2:15 PM DISK SHARPENER): Compression fracture in upper back; continue to [...] b.i.d. 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 More than 4 times per year 07/18/2023 Do you belong to any clubs o r organizations such as confucianism groups, unions, fraternal or athletic groups, or [...] place to sleep or slept in a mcfp (including now)? No 07/18/2023 Personal Safety Answer Date Recorded Have you ever been in or are you currently in a harmful physical or emotional relationship or is someone making you feel afraid or unsafe? Denies 10/06/2023 Comments No Sex and Gender Information Value Date Recorded Sex Assigned at Not on file Legal Sex Female 11:18 AM DISK SHARPENER Gender Identity Female 04/22/2022 11:34 AM CDT [...] Comments HM MAMMOGRAPHY Routine 08/28/2024 1:24 PM DISK SHARPENER PAP AND HPV, REFLEX TO HPV GENOTYPES Routine 04/09/2024 10:44 AM CDT Well woman exam COLONOSCOPY 10/06/2023 8:29 AM DISK SHARPENER HEPATITIS C ANTIBODY Routine 01/04/2022 11:44 AM CDT Encounter for hepatitis C screening test for low risk patient from Last 3 Months or Most Recently Relevant to Health Maintenance Results * HM MAMMOGRAPHY (08/28/2024 1:24 PM DISK SHARPENER) us Historical Provider HEALTH MAINTENANCE Final Result * Pap and HPV, reflex to HPV Genotypes (04/09/2024 10:44 AM CDT) CLINICAL INFORMATION: [facility] Comment: Normal exam WELL WOMAN EXAM LMP [facility] Comment:UNKNOWN Previous Pap [facility] Comment:NONE GIVEN Prev. Bx [facility] Comment:NONE GIVEN SOURCE: [facility] Comment:Cervix, Endocervix Pap, specimen adequacy [facility] Comment:SATISFACTORY FOR RIOS LUATION HPV interp [facility] Comment: Cytology Results: Negative for intraepithelial lesion or malignancy. Atrophic pattern; predominantly parabasal cells COMMENTS [facility] Comment: This Pap test has been evaluated with computer assisted technology. Firer Low Pressure Que [facility] Comment: CAK, CT(ASCP) CT Screening Location: [place] [address] [place] [address] [facility] Comment: EXPLANATORY NOTE: The Pap is a [...] High Risk E6/E7 Not Detected NOT DETECTED [place] /S[facility] [place] Comment: Not Detected High Risk HPV types (16,18,31,33,35,39,45,51,52, 56,58,59,66,68) were not detected. Other HPV types which cause anogenital lesions may be present. The significance of the other types of HPV in malignant processes has not been established. Methodology: Real Time PCR Thin prep 04/09/2024 10:4 4 AM CDT 04/10/2024 8:49 AM CDT us Matilda Salinas MD LAB CYTOLOGY ORDERA BLES Final Result [facility] [address] [place] [address] Skyscraper/[facility] [address] [place] [address] * COLONOSCOPY (10/06/2023 8:29 AM DISK SHARPENER) Anatomical Region Laterality Modality Other Narrative Procedure Note German Urbano MD - 10/06/2023 8:29 AM CST [facility] Patient Name: Nel Schultz Procedure Date: 10/06/2023 8:29 AM Date of : 1960 Admit Type: Outpatient Age: 62 Gender: Female Attending MD: German Urbano M.D. Room: [facility] ENDOSCOPY ROOM 1 Note Status: Finalized [...] scope was passed under direct vision. TheColonoscope [id number] was introduced through the anus and advanced [...] history of colonic polyps CPT copyright 2020 [employer]. All rights reserved. The codes documented in this report are preliminary and upon cemetery manager reviewmay be revised to meet current compliance requirements. Recognized by the [employer] for promoting quality [...] - GENERA L ORDERABLES Final Result [facility] [id number] [place] [address] from Last 3 Months or Most Recently Relevant to Health Maintenance Insurance [facility] ACCESS ANTHEM ACCESS ANTHEM ACCESS Advance Directives For more information, please contact: [phone] * Full Code (Latest Code Status on File) Date Activated Date Inactivated Comments 10/06/2023 8:32 AM 10/06/2023 2:57 PM * Full Code Date Activated Date Inactivated Comments 10/06/2023 8:32 AM 10/06/2023 8:32 AM Care Teams Ordering Box Operator Relationship Specialty Start Date End [place] [address] PCP - General Family Medicine 01/04/22
--- NOTE | 2025-04-21 23:11 | ECG_ITS ---
Test Date: 2025-04-21 23:23:45 Measurements Intervals [place] Rate: 61 P: 55 NC: 175 QRS: 43 QRSD: 91 T: 45 QT: 426 QTc: 431 Interpretive Statements SINUS RHYTHM No previous ECG available for comparison Electronically Signed On 04-22-2025 22:28:46 CDT by Sylvia Bello M.D.
--- NOTE | 2025-04-21 23:15 | ED.DIZZY ---
HPI - Dizziness General Chief Complaint: Dizziness <Marlys Godinez PA-C - Last Filed: 04/22/25 00:56> Stated Complaint: dizzy <Marlys Godinez PA-C - Last Filed: 04/22/25 00:56> Time Seen by Provider: 04/21/25 22:46 <Marlys Godinez PA-C - Last Filed: 04/22/25 00:56> History of Present Illness HPI Narrative: 64-year-old female with history of hyperlipidemia hypertension presents to emergency department with concerns for dehydration. Patient states over the past few days she has been outside a lot in the heat and drinking alcohol for the holiday weekend. She states today she went on hour long walk with her friends outside and shortly after the walk became lightheaded. She drank a couple of body armours and states her symptoms then resolved. She then later was lying out in the pool at side and began feeling lightheaded again. She had a liquid IV with improvement. She states tonight she was going to bed she went to lay down and felt like the room was spinning. She was concerned that she may be dehydrated so came to the emergency department. On my evaluation the patient states she does feel improved and was initially thinking about leaving the emergency department prior to being evaluated because her symptoms have largely resolved. She does note that she has mid scapular back pain since she was laying down on a raft at the pool today. She states this pain is intermittent and chronic since she was found to have an incidental T7 compression fracture noted on a chest x-ray in April 2023. She states since then she has had intermittent pain to her mid scapula. She denies any injury or trauma. Denies chest pain or shortness of breath. Denies numbness or tingling to her extremities or abdominal pain. <Marlys Godinez PA-C - Last Filed: 04/22/25 00:56> Related Data Home Medications: Home Medications ?Medication ?Instructions ?Recorded ?Confirmed ?Last Taken ?Type losartan 100 mg tablet 100 mg PO DAILY 06/10/23 06/10/23 Unknown History rosuvastatin 10 mg tablet (Crestor) 10 mg PO DAILY 06/10/23 06/10/23 Unknown History <Marlys Godinez PA-C - Last Filed: 04/22/25 00:56> Allergies/Adverse Reactions: Allergies Allergy/AdvReac Type Severity Reaction Status Date / Time No Known Allergies Allergy Verified 04/21/25 21:21 <Marlys Godinez PA-C - Last Filed: 04/22/25 00:56> Review of Systems Review of Systems: All systems reviewed & are unremarkable except as noted in HPI and below <Marlys Godinez PA-C - Last Filed: 04/22/25 00:56> PMFSH Past Medical History Medical History: Medical History History of hyperlipidemia History of hypertension <Marlys Godinez PA-C - Last Filed: 04/22/25 00:56> Social History Social History: Social History Smoking status: Never smoker <Marlys Godinez PA-C - Last Filed: 04/22/25 00:56> Exam Narrative: GENERAL: Well-appearing, well-nourished, and in no acute distress. HEAD: Normocephalic, atraumatic. EYES: PERRLA and EOMI. ENT: Nares clear, no rhinorrhea or epistaxis. Mucous membranes moist. Bilateral TMs are [place] nonbulging with normal canals NECK: Supple. BACK: No midline thoracolumbar spinous tenderness, crepitus, step-offs or deformities. CHEST: Clear to auscultation. No respiratory distress. HEART: Regular rate and rhythm. No murmur heard. Normal peripheral pulses. ABDOMEN: Soft, nontender, nondistended, normal active bowel sounds. EXTREMITIES: Normal range of motion. No edema. SKIN: Warm, dry, no rash. NEURO: No focal deficits. Alert and oriented x4. Strength 5/5 in BUE and BLE. Sensation intact throughout <Marlys Godinez PA-C - Last Filed: 04/22/25 00:56> Course CONFERENCE SERVICES MANAGER/PA Physician Supervision I agree with midlevel documentation; I performed the medical decision making component of this evaluation. <Lita Galindo MD - Last Filed: 04/22/25 01:24> Vital Signs Vital signs: Vital Signs Temperature 97.6 F 04/21/25 21:16 Pulse Rate 68 04/21/25 21:16 Respiratory Rate 18 04/21/25 21:16 Blood Pressure 186/93 H 04/21/25 21:16 Pulse Oximetry 100 04/21/25 21:16 Temperature 97.6 F 04/21/25 21:16 Pulse Rate 58 L 04/22/25 00:46 Respiratory Rate 11 L 04/22/25 00:46 Blood Pressure 143/69 H 04/22/25 00:46 Pulse Oximetry 99 04/22/25 00:46 Oxygen Delivery Room Air 04/21/25 22:52 <Marlys Godinez PA-C - Last Filed: 04/22/25 00:56> Vital Signs Temperature 97.6 F 04/21/25 21:16 Pulse Rate 68 04/21/25 21:16 Respiratory Rate 18 04/21/25 21:16 Blood Pressure 186/93 H 04/21/25 21:16 Pulse Oximetry 100 04/21/25 21:16 Temperature 97.6 F 04/21/25 21:16 Pulse Rate 58 L 04/22/25 00:46 Respiratory Rate 11 L 04/22/25 00:46 Blood Pressure 143/69 H 04/22/25 00:46 Pulse Oximetry 99 04/22/25 00:46 Oxygen Delivery Room Air 04/21/25 22:52 <Lita Galindo MD - Last Filed: 04/22/25 01:24> MDM - Dizziness MDM Narrative Medical decision making narrative: 64-year-old female with history of hypertension and hyperlipidemia presents to the emergency department for lightheadedness and dizziness throughout the day today. Patient notes her symptoms improved each time with hydration. She does admit to being outside in the heat a lot over the holiday weekend. She is also reporting acute on chronic mid scapular pain after finding out she had incidental C7 fracture in 2022. She denies any chest pain or shortness of breath. Vital signs did show elevated blood pressure but has since improved to 162/72 on my evaluation. The patient is resting comfortably in exam bed and is the pleasant and nontoxic appearing. She is neurovascularly intact. EKG shows normal sinus rhythm with a rate of 61 ppm, normal AR interval, normal QRS duration normal QTC, no ischemic changes. Troponin is undetectable. Chest x-ray shows no acute cardiopulmonary findings. CBC without leukocytosis or anemia. Chemistries with hyponatremia of 130, hypochloremia of 95, remainder of electrolytes are unremarkable. Orthostatic vital signs are normal. Patient updated on results. She received IV fluids with improvement. I did offer Tylenol and Flexeril for her reported midscapular pain however she declined and states she is now not having any pain. Advised patient to increase fluids and follow up with her PCP. Discussed strict ED return precautions. She is agreeable with the plan verbalized understanding. Discharged in stable condition. <Marlys Godinez PA-C - Last Filed: 04/22/25 00:56> Lab Data Result diagrams: 04/21/25 23:32 04/21/25 23:32 <Marlys Godinez PA-C - Last Filed: 04/22/25 00:56> Labs: Lab Results 04/21/25 Range/Units 23:32 WBC 6.4 (4.5-10.0) K/mm3 RBC 3.93 L (4.2-5.4) M/mm3 Hgb 12.7 (12.0-15.0) g/dL Hct 36.8 L (37.0-47.0) % MCV 93.6 (80-100) fl MCH 32.3 (26-34) pg MCHC 34.5 (32-36) g/dl RDW 14.0 (11.5-14.5) % Plt Count 234 (150-375) k/mm3 MPV 10.2 (7.4-10.4) fl Immature Gran % (Auto) 0.5 (0-0.5) % Neut % (Auto) 54.0 (45.5-73.1) % Lymph % (Auto) 29.3 (18.3-44.2) % Harnett % (Auto) 12.9 H (2.6-8.5) % Eos % (Auto) 2.2 (0-4.4) % Baso % (Auto) 1.1 (0.2-1.2) % Lymph # (Auto) 1.89 (0.9-3.2) K/mm3 H[place]ett # (Auto) 0.8 H (0.1-0.6) K/mm3 Eos # (Auto) 0.1 (0-0.3) K/mm3 Baso # (Auto) 0.1 (0.0-0.1) K/mm3 Abs Immat Gran (auto) 0.03 (0.00-0.031) K/mm3 Absolute Neuts (auto) 3.5 (1.3-6.7) K/mm3 Absolute Nucleated RBC 0.000 (0.0-0.012) K/mm3 Nucleated RBC % 0.0 (0.0-0.2) % PT 11.7 (11.1-14.7) Seconds INR 0.8 APTT 27.0 (22.3-36.8) Seconds Sodium 130 L (137-145) mmol/L Potassium 3.9 (3.4-5.0) mmol/L Chloride 95 L (98-107) mmol/L Carbon Dioxide 26 (22-30) mmol/L Anion Gap 9 (4-12) mmol/L BUN 12 (7-17) mg/dL Creatinine 0.53 L (0.7-1.0) mg/dL Estim Creat Clear Calc 75 ml/min Estimated GFR > 60 (59 - ) Glucose 110 (65-110) mg/dL Calcium 9.1 (8.4-10.2) mg/dL Total Bilirubin 0.5 (0.2-1.3) mg/dL AST 40 H (14-36) U/L ALT 22 (6-35) U/L Alkaline Phosphatase 76 (38-126) U/L Troponin I < 0.012 (0.000-0.034) ng/mL Total Protein 7.9 (6.3-8.2) g/dL Albumin 4.5 (3.5-5.1) g/dL Urine Color Yellow (Yellow) Urine Appearance Clear (Clear) Urine pH 7.5 (5.0-9.0) Ur Specific [place] 1.005 (1.001-1.035) Urine Protein Negative (Negative) mg/dL Urine Glucose (UA) Negative (Negative) mg/dL Urine Ketones Negative (Negative) mg/dL Ur Blood (Man) Negative (Negative) Urine Nitrate Negative (Negative) Urine Bilirubin Negative (Negative) Urine Urobilinogen 0.2 (<2.0) mg/dL Add Ur Microanalysis Reviewed Leukocyte Esterase Rfl 1+ H (Negative) BETO/UL Urine RBC 0-2 (0-2) /hpf Urine WBC 0-5 (0-3) /hpf Ur Squamous Epith Cells None seen (Few) /hpf Urine Bacteria None seen /hpf Urine Casts 0-2 <Marlys Godinez PA-C - Last Filed: 04/22/25 00:56> Lab Results 04/21/25 Range/Units 23:32 WBC 6.4 (4.5-10.0) K/mm3 RBC 3.93 L (4.2-5.4) M/mm3 Hgb 12.7 (12.0-15.0) g/dL Hct 36.8 L (37.0-47.0) % MCV 93.6 (80-100) fl MCH 32.3 (26-34) pg MCHC 34.5 (32-36) g/dl RDW 14.0 (11.5-14.5) % Plt Count 234 (150-375) k/mm3 MPV 10.2 (7.4-10.4) fl Immature Gran % (Auto) 0.5 (0-0.5) % Neut % (Auto) 54.0 (45.5-73.1) % Lymph % (Auto) 29.3 (18.3-44.2) % H[place]ett % (Auto) 12.9 H (2.6-8.5) % Eos % (Auto) 2.2 (0-4.4) % Baso % (Auto) 1.1 (0.2-1.2) % Lymph # (Auto) 1.89 (0.9-3.2) K/mm3 [place] # (Auto) 0.8 H (0.1-0.6) K/mm3 Eos # (Auto) 0.1 (0-0.3) K/mm3 Baso # (Auto) 0.1 (0.0-0.1) K/mm3 Abs Immat Gran (auto) 0.03 (0.00-0.031) K/mm3 Absolute Neuts (auto) 3.5 (1.3-6.7) K/mm3 Absolute Nucleated RBC 0.000 (0.0-0.012) K/mm3 Nucleated RBC % 0.0 (0.0-0.2) % PT 11.7 (11.1-14.7) Seconds INR 0.8 APTT 27.0 (22.3-36.8) Seconds Sodium 130 L (137-145) mmol/L Potassium 3.9 (3.4-5.0) mmol/L Chloride 95 L (98-107) mmol/L Carbon Dioxide 26 (22-30) mmol/L Anion Gap 9 (4-12) mmol/L BUN 12 (7-17) mg/dL Creatinine 0.53 L (0.7-1.0) mg/dL Estim Creat Clear Calc 75 ml/min Estimated GFR > 60 (59 - ) Glucose 110 (65-110) mg/dL Calcium 9.1 (8.4-10.2) mg/dL Total Bilirubin 0.5 (0.2-1.3) mg/dL AST 40 H (14-36) U/L ALT 22 (6-35) U/L Alkaline Phosphatase 76 (38-126) U/L Troponin I < 0.012 (0.000-0.034) ng/mL Total Protein 7.9 (6.3-8.2) g/dL Albumin 4.5 (3.5-5.1) g/dL Urine Color Yellow (Yellow) Urine Appearance Clear (Clear) Urine pH 7.5 (5.0-9.0) Ur Specific [place] 1.005 (1.001-1.035) Urine Protein Negative (Negative) mg/dL Urine Glucose (UA) Negative (Negative) mg/dL Urine Ketones Negative (Negative) mg/dL Ur Blood (Man) Negative (Negative) Urine Nitrate Negative (Negative) Urine Bilirubin Negative (Negative) Urine Urobilinogen 0.2 (<2.0) mg/dL Add Ur Microanalysis Reviewed Leukocyte Esterase Rfl 1+ H (Negative) BETO/UL Urine RBC 0-2 (0-2) /hpf Urine WBC 0-5 (0-3) /hpf Ur Squamous Epith Cells None seen (Few) /hpf Urine Bacteria None seen /hpf Urine Casts 0-2 <Lita Galindo MD - Last Filed: 04/22/25 01:24> Discharge Plan Discharge Clinical Impression: Episodic lightheadedness <Marlys Godinez PA-C - Last Filed: 04/22/25 00:56> Patient Disposition: Home <Marlys Godinez PA-C - Last Filed: 04/22/25 00:56> Condition: Stable <Marlys Godinez PA-C - Last Filed: 04/22/25 00:56> Instructions: Antibiotic Form, Lightheadedness (ED) <Marlys Godinez PA-C - Last Filed: 04/22/25 00:56> Additional Instructions: Please make sure to drink plenty of fluids. Follow up with her primary care provider. Return to the emergency department if you develop lightheadedness, loss of consciousness, chest pain or shortness of breath, or other concerning symptoms. <Marlys Godinez PA-C - Last Filed: 04/22/25 00:56> Patient Language: Sami <Marlys Godinez PA-C - Last Filed: 04/22/25 00:56> Prescriptions: No Action losartan 100 mg tablet 100 mg PO DAILY rosuvastatin [Crestor] 10 mg tablet 10 mg PO DAILY <CHASE Peters Last Filed: 04/22/25 00:56> Follow-up/Referrals: PHYSICIAN NOT ON STAFF,NONSTAFF [Primary Care Provider] - <CHASE Peters Last Filed: 04/22/25 00:56>
[2025-04-21] MEDS: SODIUM CHLORIDE 0.9% IV 1,000 ML 999 ML IV CONT (23:33)
[2025-04-21 23:48] LABS: Hematocrit 36.8 % (37.0-47.0); Hemoglobin 12.7 g/dL (12.0-15.0); Immature Granulocyte Percent A 0.5 % (0-0.5); Lymphocytes Absolute Auto 1.89 K/mm3 (0.9-3.2); Mean Corpuscular HGB Conc 34.5 g/dl (32-36); Mean Corpuscular Hemoglobin 32.3 pg (26-34); Mean Corpuscular Volume 93.6 fl (80-100); Nucleated Red Blood Cells Absolute Auto 0.000 K/mm3 (0.0-0.012); Nucleated Red Blood Cells Perc 0.0 % (0.0-0.2); Platelet Count Result 234 k/mm3 (150-375); Red Blood Count 3.93 M/mm3 (4.2-5.4); White Blood Count 6.4 K/mm3 (4.5-10.0)
[2025-04-21 23:50] LABS: Alanine Aminotransferase 22 U/L (6-35); Albumin Level 4.5 g/dL (3.5-5.1); Alkaline Phosphatase 76 U/L (38-126); Anion Gap 9 mmol/L (4-12); Aspartate Amino Transferase 40 U/L (14-36); Bilirubin,Total 0.5 mg/dL (0.2-1.3); Blood Urea Nitrogen 12 mg/dL (7-17); Calcium 9.1 mg/dL (8.4-10.2); Carbon Dioxide 26 mmol/L (22-30); Chloride 95 mmol/L (98-107); Estimated CRCL calculation 75 ml/min; Estimated Glomerular Filt Rate > 60; Glucose 110 mg/dL (65-110); Potassium 3.9 mmol/L (3.4-5.0); Sodium 130 mmol/L (137-145); Total Protein 7.9 g/dL (6.3-8.2)
[2025-04-22] VITALS (10 sets, daily range): BP systolic 135–168; BP diastolic 69–93; PULSE 58–67; RESP 11–20; O2SAT 96–99
[2025-04-22 00:02] LABS: Troponin I < 0.012 ng/mL (0.000-0.034)
[2025-04-22 00:04] LABS: INR 0.8; Partial Thromboplastin Time 27.0 Seconds (22.3-36.8); Prothrombin Time 11.7 Seconds (11.1-14.7)
[2025-04-22 00:35] LABS: Add Urine Microscopic? YES; Appearance Urine Clear (Clear); Glucose Urine UA Negative (Negative); Leukocyte Esterase Ur 1+ LEU/UL (Negative); Need Manual Microscopic Reviewed; Nitrate Urine Negative (Negative); Non Pathogenic Casts 0-2; Specific Grav Ur 1.005 (1.001-1.035)
== END 2025-04-22 00:59 | disposition home or self-care (01) ==
PROVIDERS: Emergency Provider Physician Assistant
DX: R42 Dizziness and giddiness (principal); I10 Essential (primary) hypertension; E78.5 Hyperlipidemia, unspecified
CPT/HCPCS: 36415; 71045; 80053; 81001; 84484; 85025; 85610; 85730; 87086; 93005; 96360; 99284; J7030

== ENCOUNTER 2025-10-04 09:20 | Emergency (ER) | payer BC, SELFPAY ==
[2025-10-04 09:31] VITALS: BP 182/102; PULSE 75; RESP 16; TEMP 37.2; O2SAT 100
[2025-10-04 10:02] VITALS: BP 197/118; PULSE 80
--- NOTE | 2025-10-04 10:09 | PC.NURSE ---
1002- pt states that she feels like her blood pressure is getting higher, and pt states that she feels like she needs to walk around to get to feel better, encouraged pt to not walk in room or halls, and to just remain sitting at present, and PRECIPITATOR is on his way in for her exam. pt states hx of htn and states she has been taking her hbp meds, but it has never been that high, pt states she has not been taking cold/sinus meds for her sick symptoms. pt understands possible going to er for further evaluation if PRECIPITATOR says its in her best interest.
--- NOTE | 2025-10-04 10:29 | ED.URI ---
HPI - URI/Sore Throat General Chief Complaint: Upper Respiratory Infection Stated Complaint: URI Symptoms Time Seen by Provider: 10/04/25 10:15 Source: patient and RN notes reviewed Mode of arrival: ambulatory Limitations: no limitations History of Present Illness HPI Narrative: 64-year-old female upper respiratory symptoms for over a week. Patient reports cough, congestion, nasal drainage, voice hoarseness, fevers, body aches, chills. Patient says symptoms are not getting better. Patient has any chest pain, nausea vomiting, difficulty breathing, headache, lightheadedness, vision changes, any other symptoms. Patient's blood pressure is elevated today, she said she took her losartan prior to arrival. Patient denies taking any decongestants. Patient does report that she did take multiple electrolyte pack drink a electrolyte drink this morning for hydration. Patient did not monitor the sodium intake. Patient denies any other significant past medical problems. Related Data Home Medications ?Medication ?Instructions ?Recorded ?Confirmed ?Last Taken ?Type rosuvastatin 10 mg tablet (Crestor) 10 mg PO DAILY 06/10/23 06/10/23 Unknown History losartan 50 mg tablet mg 10/04/25 Unknown History Allergies Allergy/AdvReac Type Severity Reaction Status Date / Time No Known Allergies Allergy Verified 10/04/25 09:51 Review of Systems Review of Systems: CONSTITUTIONAL: Positive for body aches, fever, chills. Negative for sweats. EYES: Denies visual changes, redness, or discharge. ENT: Denies rhinorrhea, sore throat, or otalgia. Positive for congestion nasal drainage. CARDIOVASCULAR: Denies chest pain, palpitations, lightheadedness, or edema. RESPIRATORY: Positive for cough. Negative for wheezing dyspnea. GASTROINTESTINAL: Denies abdominal pain, nausea, vomiting, or diarrhea. GENITOURINARY: Denies dysuria or hematuria. SKIN: Denies rash or itching. MUSCULOSKELETAL: Denies back pain, joint pain, or myalgia. NEUROLOGIC: Denies headache, numbness, or weakness. PSYCHIATRIC: Denies anxiety or depression. All other systems reviewed are negative, except as documented in HPI. [facility] Past Medical History Medical History History of hyperlipidemia History of hypertension Social History Social History Smoking status: Never smoker Comments At the time of my signature, I reviewed and agree with the nursing past medical, surgical, social, and family history. There is no relevant family history pertinent to the patient complaint. Exam Narrative: GENERAL: This is a well-nourished, well-developed adult, in no apparent distress. They are non ill-appearing, nontoxic appearing. HEAD: normocephalic, atraumatic. EYES: Sclera clear/white. Conjunctiva normal. Vision is grossly intact. Extraocular movements intact. Pupils PERRLA EARS: External ears normal, auditory canals clear and without drainage, TMs normal without perforation. Hearing grossly intact. NOSE: External nose normal with no obvious nasal discharge, nasal turbinates erythematous no rhinorrhea. THROAT: Mucous membranes moist, posterior pharynx clear, injected with PND. Uvula midline. NECK: Neck supple, non-tender without lymphadenopathy, masses or thyromegaly. CARDIOVASCULAR: Regular rate and rhythm without murmurs, gallops, or rubs. RESPIRATORY: Clear to auscultation. Breath sounds equal bilaterally. No wheezes, rales, or rhonchi. SKIN: warm, Dry, intact with no suspicious lesions or rash, good texture and turgor. NEURO: awake, alert, and oriented to person, place and time. There were no obvious focal neurologic abnormalities. Cranial nerves 2-12 grossly intact. EXTREMITIES: No joint tenderness, effusion, or edema noted. BACK: Nontender without deformity. No CVA tenderness. Course Course Level of Care: Express Care Visit Vital Signs Vital signs: Vital Signs Temperature 98.9 F 10/04/25 09:31 Pulse Rate 75 10/04/25 09:31 Respiratory Rate 16 10/04/25 09:31 Blood Pressure 182/102 H 10/04/25 09:31 Pulse Oximetry 100 10/04/25 09:31 Temperature 98.9 F 10/04/25 09:31 Pulse Rate 80 10/04/25 10:02 Respiratory Rate 16 10/04/25 09:31 Blood Pressure 197/118 H 10/04/25 10:02 Pulse Oximetry 100 10/04/25 09:31 MDM MDM Narrative Medical decision making narrative: Patient likely has bacterial sinusitis given length of symptoms. Will treat with Augmentin. Patient's blood pressure is elevated, she denies any vision changes, headaches, chest pain, vomiting, nausea, any other symptoms. Patient likely may be consuming too many electrolyte drinks, she did take her blood pressure pill this morning, she denies take any decongestants. Advised patient to avoid any electrolyte drinks or to monitor the sodium and limit to less than 2 g a day. Patient also says she has history of white coat syndrome. I offered to patient ear transfer for blood pressure and she declined she said she will call her doctor. Recommended patient go home and rest and recheck her blood pressure and see if it has improved. For patient blood pressure gets worse her goes over 200 systolic or 120 diastolic to go to the ER immediately. Discussed physical exam findings. Advised supportive measures and signs/symptoms to go to the ER. Pt is appropriate for outpt treatment and f/u. Differential Diagnosis Differential Diagnosis: Differential diagnostic considerations for upper respiratory infection include upper respiratory infection, croup, otitis media, sinusitis, viral infection, bronchitis, influenza, pharyngitis, strep, uvulitis, hypertension, hypertensive urgency, hypertensive crisis. Critical Care Time Critical Care Time Critical Care Time: No Discharge Plan Discharge Clinical Impression: Sinusitis Qualifiers: Sinusitis location: unspecified location Chronicity: acute Recurrence: non-recurrent Qualified Code(s): J01.90 - Acute sinusitis, unspecified Patient Disposition: Home Condition: Stable Instructions: Antibiotic Form, Sinusitis (ED) Additional Instructions: Take the antibiotics as directed and complete the course even if you start to feel better. You may use a Neti pot saline rinse 3 times a day with lukewarm distilled water Continue to take Tylenol or Motrin as needed for pain or fevers. Use a humidifier or vaporizer at night. Drink plenty of water. 8-10 glasses per day. Use flonase 2 times per day for 5 days then as needed Take mucinex 2 times per day and be sure to take with 8oz of water. You may be consuming too many electrolyte supplements please limit her salt intake to no more than 2000 mg a day. Make sure you avoid any decongestants as they may raise your blood pressure. Blood pressure is elevated today the Express Care please contact her doctor about your blood pressure. Follow up with Primary provider in 2-3 days. Please go to the ER if he develops any difficulty breathing, chest pain, vision problems, headaches, worsening symptoms, your blood pressure 200s systolic or 120 diastolic or any serious other concerns. Patient Language: Puerto Rican Prescriptions: New amoxicillin-pot clavulanate 875-125 mg tablet 1 tablet PO Q12H 7 Days Qty: 14 0RF No Action losartan 50 mg tablet rosuvastatin [Crestor] 10 mg tablet 10 mg PO DAILY Follow-up/Referrals: UNKNOWN,DOCTOR [Primary Care Provider] Time of Disposition: 10:25
== END 2025-10-04 10:27 | disposition home or self-care (01) ==
DX: J01.90 Acute sinusitis, unspecified (principal); I10 Essential (primary) hypertension; E78.5 Hyperlipidemia, unspecified
CPT/HCPCS: 99213; G0463

== ENCOUNTER 2025-10-08 14:43 | Emergency (ER) | payer BC, SELFPAY ==
[2025-10-08] VITALS (12 sets, daily range): BP systolic 121–192; BP diastolic 64–99; PULSE 59–74; RESP 11–17; TEMP 36.6–36.8; O2SAT 95–100
--- NOTE | ~2025-10-08 | XR_ITS ---
EXAMINATION: XR chest 2V 10/08/2025 17:59 INDICATION: Chest tightness PROCEDURE: 2 view chest COMPARISON: 04/21/2025 FINDINGS: The lungs are clear. The cardiomediastinal silhouette is within normal limits. There are no pleural effusions. There is no pneumothorax suspected. IMPRESSION: 1: NO ACUTE CARDIOPULMONARY DISEASE. Reviewed, dictated and finalized at location O. RT HOST
--- NOTE | ~2025-10-08 | CT_ITS ---
EXAMINATION: CT abdomen pelvis w con DATE: 10/08/2025 19:42 INDICATION: Epigastric abdominal pain. TECHNIQUE: Computed tomography (CT) of the abdomen and pelvis was performed with 100 mL Omnipaque 350 intravenous contrast. Automated exposure control and iterative reconstruction technique were employed. The dose-length product was 322.74 mGy-cm. COMPARISON: None. FINDINGS: The visualized portions of lung bases demonstrate mild atelectasis. No pleural effusion. The heart size is normal. No pericardial effusion. There is a 12 mm cyst in the liver. The gallbladder, spleen, pancreas, adrenal glands, and right kidney are normal. There are cysts in left kidney measuring up to 10 mm. There are prominent periuterine and left ovarian veins, consistent with pelvic venous insufficiency. There is diverticulosis of the colon without evidence of diverticulitis. There is a large volume of stool in the colon. The appendix is not visualized. There are no pathologically enlarged lymph nodes. The paranasal sinuses are clear. There is mild lumbar spondylosis. There is a chronic compression fracture of L5. IMPRESSION: 1. Pelvic venous insufficiency. 2. Large volume of stool in the colon. Reviewed, dictated and finalized at location E. [employer]
--- OUTSIDE RECORDS SUMMARY | 2025-10-08 14:48 | XMS_ITS | Clinical Summary ---
Author Organization [employer] Address [address] [facility] [place] [address] Care Team Providers Care Lead Loader Name Role Phone Ameya Lockett MD Primary Care Provide r Allergies No known active allergies Medications losartan (COZAAR) 25 MG tablet 02/05/2021 Active rosuvastatin (CRESTOR) 10 MG tablet TAKE 1 TABLET BY MOUTH EVERY DAY 12/14/2020 Active prednisoLONE acetate (PRED FORTE) 1 % ophthalmic suspension 02/10/2021 Active Immunizations Immunization Administration Dates Next Due Adacel (Tdap) Prefilled Syringe 02/25/2021 Social History Tobacco Use Types Packs/Day Years Used Date Smoking Tobacco: Never Smokeless Tobacco: Never Comments Unknown Sex and Gender Information Value Date Recorded Sex Assigned at Not on file Legal Sex Female 7:45 PM EDT Gender Identity Not on file Sexual Orientation Not on file Last Filed Vital Signs Vital Sign Reading Time Taken Comments Blood Pressure 120/82 02/25/2021 12:47 PM EDT Pulse 71 02/25/2021 12:47 PM EDT Temperature 36.4 C (97.5 F) 02/25/2021 12:47 PM EDT Respiratory Rate 16 02/25/2021 12:47 PM EDT Oxygen Saturation 98% 02/25/2021 12:47 PM EDT Inhaled Oxygen Concentration - - Weight - - Height - - Body Mass Index - - Plan of Treatment Not on file Medical Devices Not on file Care Teams Lead Loader Relationship Specialty Start Date End [place]ett [place] [id number] [id number] PCP - General Family Medicine 02/25/21
--- OUTSIDE RECORDS SUMMARY | 2025-10-08 14:48 | XMS_ITS | Encounter Summary ---
Author Organization [facility] Healthcare Address [address] [place] [address] Care Team Providers Care Research Chief Engineer Name Role Phone Neymar Metcalf MD Primary Care Provider [phone] Encounter Details Date Type Department Care Team (Late st Contact Info) Description 08/08/2025 Results Follow-Up [facility] [address] [id number] Neymar Metcalf MD [address] [place] [address] Lipid panel, CBC with auto differential, Comprehensive metabolic panel, Additional followed-up results: 3 Social History Tobacco Use Types Packs/Day Years Used Date Smoking Tobacco: Former Cigarettes Q uit: 1994 Smokeless Tobacco: Never Comments:I started smoking i n College and stopped at age 35 Alcohol Use Standard Drinks/Week Comments Yes 4 (1 standard drink = 0.6 oz pur e alcohol) Social Connection and Isolation Panel Answer Date Recorded In a typical week, how many times do you talk on the phone with family, friends, or neighbors? More than three times a week 07/18/2023 How often do you get togethe r with friends or relatives? Once a week 07/18/2023 How often do you attend chur or denominational services? More than 4 times per year 07/18/2023 Do you belong to any clubs o r organizations such as jehovah's witness groups, unions, fraternal or athletic groups, or school groups? No 07/18/2023 How often do you attend meet ings of the clubs or organizations you belong to? Never 07/18/2023 Are you , , di vorced, , never , or living with a partner? 07/18/2023 Overall Financial Resource Strain (CARDIA) Answe r Date Recorded How hard is it for you to pa y for the very basics like food, housing, medical care, and heating? Not hard at all 07/18/2023 PHQ-2 Answer Date Recorded PHQ-2 Total Score (If total score is 3 or more points, staff should administer the PHQ-9) 0 08/08/2025 Exercise Vital Sign Answer Date Recorde d [...] place to sleep or slept in a penitentiary (including now)? No 07/18/2023 Humiliation, Afraid, Rape, and Kick questionnair e Answer Date Recorded Within the last year, have y ou been afraid of your partner or ex-partner? No 06/03/2025 Within the last year, have y ou been humiliated or emotionally abused in other ways by your partner or ex-partner? No Within the last year, have y ou been kicked, hit, slapped, or otherwise physically hurt by your partner or ex-partner? No 06/03/2025 Within the last year, have y ou been raped or forced to have any kind of sexual activity by your partner or ex-partner? No 06/03/2025 AUDIT-C Answer Date Recorded Q1: How often do you have a drink containing alcohol? 4 or more times a week 08/07/2025 Q2: How many drinks containi ng alcohol do you have on a typical day when you are drinking? 1 or 2 Q3: How often do you have si x or more drinks on one occasion? Never 08/07/2025 Personal Safety Answer Date Recorded Have you ever been in or are you currently in a harmful physical or emotional relationship or is someone making you feel afraid or unsafe? Denies 10/06/2023 Comments No Sex and Gender Information Value Date Recorded Sex Assigned at Not on file Legal Sex Female 11:18 AM DIRECTOR CHILD Gender Identity Female 04/22/2022 11:34 AM CDT Sexual Orientation Straight 04/22/2022 11 :34 AM CDT documented as of this encounter Plan of Treatment Not on file documented as of this encounter Visit Diagnoses Not on filedocumented in this encounter Care Teams Research Chief Engineer Relationship Specialty Start Date End Date Neymar [place] [address] PCP - General Family Medicine 01/04/22 documented as of this encounter
--- OUTSIDE RECORDS SUMMARY | 2025-10-08 14:48 | XMS_ITS | Clinical Summary ---
Author Organization [facility] Address [address] [place] [address] Phone Care Team Providers Care Dial Printer Name Role Phone Neymar Metcalf MD Primary Care Provider [phone] Allergies No known active allergies Medications acetaminophen (TYLENOL) 325 mg tablet Take 2 tablets (650 mg total) by mouth every 6 (six) hours as needed for pain Active losartan (COZAAR) 50 mg tablet Take 2 tablets (100 mg total) by mouth daily 180 tablet 3 5 Active Additional Information Patient taking differently:100 mg oralDaily before breakfast, Indications: hypertension, Informant: Self, Reported on 08/08/2025 rosuvastatin (CRESTOR) 10 mg tablet TAKE 1 TABLET BY MOUTH EVERY DAY 100 tablet 1 5 Active Additional Information Patient taking differently:10 mg oralDaily before breakfast, Indications: hyperlipidemia, Informant: Self, Reported on 08/08/2025 calcium citrate-vitamin D3 250 mg-5 mcg (200 unit) tabletIndicatio ns:Hypocalcemia Prevention,Tania min D Deficiency Take 1 tablet by mouth daily before breakfast Active omega-3 fatty acids-fish oil 300-1,000 mg capsuleIndicati ons:health Take 2 capsules (2 g total) by mouth daily before breakfast Active garlic (GARLIQUE ORAL)Indication s:health Take 1 tablet by mouth daily before breakfast Active red beet 500 mg capsuleIndicati ons:health Take 1 tablet by mouth daily before breakfast Active glucosamine-cho ndroitin (Osteo Bi-Flex) 250-200 mg tabletIndicatio ns:joint health Take 1 tablet by mouth daily before breakfast Active potassium gluconate 600 mg (99 mg) tabletIndicatio ns:hypokalemia prevention Take 1 tablet by mouth daily before breakfast Active magnesium gluconate 200 mg tabletIndicatio ns:health Take 1 tablet (200 mg total) by mouth nightly Active ascorbic acid/vitamin E/biotin (HAIR, SKIN, NAILS WITH BIOTIN ORAL)Indication s:health Take 1 tablet by mouth daily before breakfast Active vitamin B complex capsule Take 1 capsule by mouth daily Active oxyCODONE (ROXICODONE) 5 mg immediate release tabletIndicatio ns:Pain Take 1 tablet (5 mg total) by mouth every 4 (four) hours as needed for pain 12 tablet 5 Active senna-docusate (PERICOLACE) 8.6-50 mg Take 1 tablet by mouth daily Take as needed for post-operative constipation 20 tablet 5 Active Active Problems Problem Noted Date Diagnosed Date Dupuytren's disease of palm of left hand 025 Personal history of colonic polyps 08/03/2023 Strain of levator scapulae muscle, initial encou nter 07/18/2023 Assessment & Plan (07/18/2023 3:54 PM CDT): Tight trps and levator scapulae musculature. Likely trigger points. Discussed exercises to address. If not improved w home treatments will discuss PT Compression fracture of body of thoracic vertebr a 05/24/2023 Assessment & Plan (08/23/2025 8:46 AM PAINT SPRAY INSPECTOR): Stable, well controlled; injury occurred 2 years ago was due to significant fall, patient reports no pain or limitations at this time Assessment & Plan (05/10/2024 1:01 PM CDT): Stable, well controlled; no further symptoms; healing well Assessment & Plan (11/01/2023 2:15 PM PAINT SPRAY INSPECTOR): Stable, well controlled; no significant back [...] fx in upper back. Assessment & Plan (08/23/2025 8:46 AM PAINT SPRAY INSPECTOR): Stable, height compression fracture in upper back, but likely not secondary to osteopenia Encouraged calcium and vitamin-D supplementations, will decrease calcium supplementation due to mildly elevated calcium levels Continue to monitor Assessment & Plan (12/26/2024 12:58 PM CDT): [...] sending her to the [facility] [place] She declines. Will continue with her calcium and vit D She has started to exercise more run/walking. Will plan to repeat in 2023 Assessment & Plan (11/01/2023 2:15 PM PAINT SPRAY INSPECTOR): Compression fracture in upper back; continue to monitor; encouraged calcium and vitamin-D; continue to determine if patient would benefit from medicine for osteoporosis to reduce risk of fracture Assessment & Plan (06/13/2023 4:51 PM CDT): Stable, well controlled; no significant pain limitations due to hip pain; improvement related to physical therapy Well woman exam 01/25/2022 Overview (06/03/2025): Lab: Pap: 04/09/24 WNL all good Labs with PCP Lynne: 08/28/24 Neg, Birads 1 Colonoscopy: 10/06/23 Repeat 5 years BMD: 05/04/23 Low bone mass -1.6 Assessment & Plan (06/03/2025 3:44 PM CDT): Pap done. RTO 12m. I will send the results to the portal. If she has not heard in a week, to call the office. Assessment & Plan (04/09/2024 9:18 AM CDT): [...] office. Hypertension, essential 01/04/2022 Assessment & Plan (08/23/2025 8:45 AM PAINT SPRAY INSPECTOR): Stable, well controlled, blood pressure at goal; no major side effects from current medications Continue losartan 100 mg daily Assessment & Plan (12/26/2024 12:58 PM CDT): [...] b.i.d. Assessment & Plan (11/01/2023 2:15 PM PAINT SPRAY INSPECTOR): Stable, generally well controlled; blood pressure [...] mg daily Dyslipidemia 01/04/2022 Assessment & Plan (08/23/2025 8:45 AM PAINT SPRAY INSPECTOR): Stable, well controlled, elevated LDL, likely genetic Continue rosuvastatin 10 mg daily, may benefit from Co Q10 supplements Previous calcium scores were 0; continue with risk factor modifications Assessment & Plan (12/26/2024 12:58 PM CDT): Total cholesterol effective, LDL at goal; HDL high; continue to monitor cholesterol levels regularly, continue with current dietary and activity levels Assessment & Plan (05/10/2024 1:01 PM CDT): Stable, well controlled, elevated HDL with normal LDL Will continue to monitor closely, continue rosuvastatin 10 mg daily Assessment & Plan (11/01/2023 2:15 PM PAINT SPRAY INSPECTOR): Stable, well controlled; HDL cholesterol elevated [...] yet causing 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 specialist, but will continue to monitor given a notable according flexor tendon sheath in both hands Encounters Date Type Department Care Team Description 10/08/2025 Nurse Triage [facility] [address] [phone] Neymar Metcalf MD 09/27/2025 8:45 AM PAINT SPRAY INSPECTOR Office Visit [facility] Medicine Surgery [address] [place] [address] Advanced Medicine 6th [place] [address] Liseth Brooks MD PhD Dupuytren's disease of palm of left hand (Primary Dx) 08/27/2025 11:55 AM PAINT SPRAY INSPECTOR Therapy [facility] Medicine Occupational Therapy [address] [place] [address] Advanced Medicine 6th [place] [address] Charlene Holt OT Dupuytren's disease of palm of left hand (Primary Dx) 08/27/2025 10:30 AM PAINT SPRAY INSPECTOR Office Visit [facility] Medicine Surgery [address] [place] [address] [place] [address] Liseth Brooks MD PhD Dupuytren's disease of palm of left hand (Primary Dx) 08/27/2025 [facility] [address] [place] [address] [place] [address] 08/21/2025 Results Follow-Up [facility] [address] [phone] Neymar Metcalf MD Surgical pathology 08/15/2025 1:37 PM CDT - 08/15/2025 4:26 PM CDT Surgery [facility] Operating [facility] [address] [place] [id number] Liseth Brooks MD PhD RELEASE DUPUYTRENS CONTRACTURE - Excision of Dupuytren's disease LEFT hand, w/ partial fasciectomy 08/15/2025 12:28 PM CDT Anesthesia Event [facility] Operating Room [facility] [address] [place] [id number] Saad Christian MD Brohi, Ashlee Renae, NP 08/15/2025 10:33 AM CDT - 08/15/2025 3:00 PM CDT Hospital Encounter [facility] Operating Room [facility] ([facility]) [address] [place] [address] Liseth Brooks MD PhD Dupuytren's disease of palm of left hand Discharge Disposition: Discharge to home or self care 08/08/2025 8:45 AM CDT Office Visit [facility] [address] [phone] Neymar Metcalf MD Hypertension, essential (Primary Dx); Dyslipidemia; Compression fracture of body of thoracic vertebra (HCC); Osteopenia of hip, unspecified laterality 08/08/2025 Results [facility]-Up [facility] [address] [phone] Neymar Metcalf MD Lipid panel, CBC with auto differential, Comprehensive metabolic panel, Additional followed-up results: 3 08/07/2025 9:30 AM CDT Lab [address] [address] Dyslipidemia; Osteopenia of hip, unspecified laterality 07/30/2025 Telephone [facility] [address] [phone] Neymar Metcalf MD Labs 07/09/2025 12:30 PM CDT - 07/09/2025 11:59 PM CDT Hospital Encounter [facility] Radiology [facility] ([facility]) [address] [place] [address] Liseth Brooks MD PhD Dupuytren's contracture of both hands Discharge Disposition: Discharge to home or self care 07/09/2025 12:30 PM CDT Office Visit [facility] Medicine Surgery [address]th [place] [phone] Liseth Brooks MD PhD Dupuytren's contracture of both hands (Primary Dx) from Last 3 Months Immunizations Immunization Administration Dates Next Due Influenza, Quadrivalent, Spl it, Preservative Free, Intramuscular 07/18/2023 Influenza, Unspecified 08/08/2025(Deferr ed: Patient Refused),12/26/2024(Deferred: Patient Refused),04/29/2023(Deferred: Patient Refused),06/17/2022(Deferred: Patient Refused),01/04/2022(Deferred: Patient Refused),10/17/2021(Deferred: Patient Refused),10/17/2020(Deferred: Patient Refused) Tdap 02/25/2021 Surgical History Surgery Date Site/Laterality Comments CATARACT EXTRACTION, BILATERAL 10/17/2020 - 10/16/2021 B ilateral COLONOSCOPY 10/17/2018 - 10/16/2019 COLONOSCOPY 10/06/2023 Medical History Medical History Date Comments Hypertension Hyperlipidemia Family History Medical History Relation Name Comments Hypertension Brother Ed Stanley Asthma Daughter Nanci Stanley Heart disease Father Ed Stanley Hypertension Father Ed Stanley Stent Father Ed Stanley Stroke Father Ed Stanley Alzheimer's disease Father's Sister Tatyana Dione Arthritis Mother Hilda Stanley Hypertension Mother Hilda Stanley Other cancer Mother Hilda Stanley thymus Bladder Cancer Mother's Brother Bill Mental illness Paternal Grandfather Ed Stanley Miscarriages / Stillbirths Sister Eileen Bell Colon cancer Neg Hx no breast or fe male cancer cmt 06/03/25 Relation Name Status Comments Brother Ed Stanley Daughter Nanci Stanley Father Ed Stanley Father's Sister Tatyana Dione Mother Hilda Stanley Mother's Brother Bill Alive Paternal Grandfather Ed Stanley Sister Eileen Arabella Social History Tobacco Use Types Packs/Day Years Used Date Smoking Tobacco: Former Cigarettes Q uit: 1994 Smokeless Tobacco: Never Tobacco Cessation:Counseling Given: Not Answered Comments:I started smoking in College and stopped at age 35 Alcohol [...] 07/18/2023 How often do you attend chur ch or jain services? More than 4 times per year 07/18/2023 Do you belong to any clubs o r organizations such as congregation groups, unions, fraternal or athletic groups, or [...] place to sleep or slept in a alf (including now)? No 07/18/2023 Humiliation, Afraid, Rape, [...] making you feel afraid or unsafe? Denies 08/15/2025 Comments No Sex and Gender Information Value Date Recorded Sex Assigned at Not on file Legal Sex Female 11:18 AM PAINT SPRAY INSPECTOR Gender Identity Female 04/22/2022 11:34 AM [...] Sign Reading Time Taken Comments Blood Pressure 151/82 08/15/2025 2:30 PM CDT Pulse 47 08/15/2025 2:40 PM CDT Temperature 36 C (96.8 F) 08/15/2025 2:05 PM CDT Respiratory Rate 9 08/15/2025 2:40 PM CDT Oxygen Saturation 99% 08/15/2025 2:40 PM CDT Inhaled Oxygen Concentration - - Weight 67.1 kg (148 lb) 08/15/2025 11:51 AM CDT Height 162.6 cm (5' 4) 08/15/2025 11:51 AM CDT Body Mass Index 25.4 08/15/2025 11:51 AM CDT Plan of Treatment Health Maintenance Due Date Last Done Comments Zoster Vaccine (1 of 2) 2011 Influenza Vaccine (#1) 2025 07/18/2023 Breast Cancer Screening-Mammogram 08/28/2025 08/28/2024, 03/23/2023 Cervical Cancer Screening 06/03/20262024, 04/09/2024, 04/04/2023, Additional history exists Regular Well Visit/Exam 18-64 06/03/2026 06/03/2025, 04/09/2024, 04/04/2023, Additional history exists Depression Screening 08/08/2026 08/08/2025, 06/03/2025, 04/24/2024, Additional history exists DTaP/Tdap/Td Vaccine (2 - Td or Tdap) 02/25/2031 02/25/2021 Colon Cancer Screening-Colonoscopy 10/06/2033 10/06/2023 Hepatitis C Screening Completed 01/04/2022 Hepatitis B Screening Completed 04/13/2024 Pneumococcal vaccine <65 Aged Out No longer eligible based on patient's age to complete this topic Procedures Procedure Name Priority Date/Time Associated Diagnosis Comments SURGICAL PATHOLOGY Routine 08/15/2025 1: 29 PM CDT Dupuytren's disease of palm of left hand ANESTHESIA INTUBATION Routine 08/15/2025 12:55 PM CDT [place] AN PROCEDURE PLACEHOLDER Routine 08/15/2025 12:36 PM CDT RELEASE DUPUYTRENS CONTRACTURE 08/15/2025 12:33 PM CDT Dupuytren's disease of palm of left hand Case Notes 07/12/25, Sent email to OR resource nurse about blank dpc. NB Special Needs Hand Tray, Hand Table, Tourniquet EGFR Routine 08/07/2025 9:35 AM CDT Dyslipidemia DIFFERENTIAL AUTO Routine 08/07/2025 9:3 5 AM CDT Dyslipidemia VITAMIN D 25 HYDROXY Routine 08/07/2025 9:35 AM CDT Osteopenia of hip, unspecified laterality COMPREHENSIVE METABOLIC PANEL Routine 08/07/2025 9:35 AM CDT Dyslipidemia CBC WITH AUTO DIFFERENTIAL Routine 08/07/2025 9:35 AM CDT Dyslipidemia LIPID PANEL Routine 08/07/2025 9:35 AM CDT Dyslipidemia XR HAND BILATERAL 3 OR MORE VIEWS OF EACH Schedule Routine, Read Routine (OP Routine) 07/09/2025 12:46 PM CDT Dupuytren's contracture of both hands PAP AND HPV, REFLEX TO HPV GENOTYPES Routine 06/03/2025 3:43 PM CDT Well woman exam HM MAMMOGRAPHY Routine 08/28/2024 1:24 PM PAINT SPRAY INSPECTOR COLONOSCOPY 10/06/2023 8:29 AM PAINT SPRAY INSPECTOR HEPATITIS C ANTIBODY Routine 01/04/2022 11:44 AM CDT Encounter for hepatitis C screening test for low risk patient from Last 3 Months or Most Recently Relevant to Health Maintenance Results * Surgical pathology (08/15/2025 1:29 PM CDT) Other (Other) 08/15/2025 1:2 9 PM CDT Narrative PATHOLOGY [facility] - 08/20/2025 11:57 AM PAINT SPRAY INSPECTOR [facility] results best viewed via link to PDF [facility] [place] [address] Note to Patients: This report may contain a detailed description of human tissue sent by a health care provider to the laboratory for pathologic evaluation. The content of this report is essential for diagnosis and may provide important critical findings. This information may be unfamiliar to patients to review without a medical professional present. It is advised that the patient review this report in the presence of a health care provider who can answer questions and explain the details. SURGICAL PATHOLOGY REPORT FINAL Patient Name: NEL DEVLIN Gender: F : 1960 (Age: 64) Address: [address] [place] [phone] Hospital #: [id number] Taken:08/15/2025 Received:08/15/2025 Reported: 08/20/2025 Patient Type: [facility] Service: Surgery Location: Physician(s): Liam Chen M.D. Diagnosis: Soft tissue, left palm and ring finger facsia, excision - Palmar fibromatosis antonio/08/20/2025 09:24 By this signature, I attest that the above diagnosis is based upon my personal examination of the slides(and/or other material indicated in the diagnosis). Ed Walker M.D. Report Electronically Reviewed and Signed Out By Ed Walker M.D. 08/20/2025 11:57:28 Brenda Gonzalez M.D. History: The patient is a 64-year-old woman with Dupuytren's disease of the palm of the left hand. Operative Procedure: release Dupuytren's contracture, excision of Dupuytren's disease left hand Specimen(s) Received: A: Left palm and ring finger fascia Gross Description: Received in formalin labeled with patient identifiersleft palm and ring finger fascia is a segment of rubbery white-amin tissue (5.0 cm in length and 0.3-0.9 cm in diameter). The specimen is serially sectioned and submitted entirely in cassette A1. Jar 0 bao2/08/16/2025 11:30 PA(s): CHITO Oscar (ASCP)CM By this signature, I attest that the above diagnosis is based upon my personal examination of the slides(and/or other material). Addenda/Procedures The performance characteristics of some immunohistochemical stains, fluorescence in-situ hybridization tests and immunophenotyping by flow cytometry cited in this report (if any) were determined by the Surgical Pathology and Flow Cytometry Departments at [facility] as part of an ongoing ict quality assurance engineer program and in compliance with federally mandated regulations drawn from the Clinical Laboratory Improvement Act of 1988 (CLIA '88). Some of these tests rely on the use of analyte specific reagents and are subject to specific labeling requirements by the US Food and Drug Administration. Such diagnostic tests may only be performed in a facility that is certified by the Department of Health and Human Services as a high complexity laboratory under CLIA '88. The FDA has determined that such clearance or approval is not necessary. This test is used for clinical purposes. It should not be regarded as investigational or for research. Nevertheless, federal rules concerning the medical use of analyte specific reagents require that the following disclaimer be attached to the report: This test was developed and its performance characteristics determined by the Surgical Pathology and Flow Cytometry Departments of [facility]. It has not been cleared or approved by the U. S. Food and Drug Administration. IMAGES AND SCANNED DOCUMENTS, IF INCLUDED, ONLY VIEWABLE IN PDF VERSION OF REPORT Liseth Brooks MD PhD LAB PATHOLOGY ORDERABLE S Final Result PATHOLOGY [facility] 3rd Floor [place], [place] [phone] * Airway (08/15/2025 12:55 PM CDT) Narrative Juan M Wood MD - 08/15/2025 12:55 PM CDT Juan M Wood MD 08/15/2025 12:55 PM Airway Patient location: OR Urgency: elective Indications for airway management: anesthesia Difficult airway: no Staff: Supervising provider: Saad Christian MD Placed by: Resident: Juan M Wood MD Emergent airway documentation: Risks and benefits discussed: yes Consent obtained: yes Consent given by: patient Airway prep: Preoxygenated: yes Patient position: sniffing MILS maintained throughout: yes Mask difficulty assessment: 0 - not attempted Spontaneous ventilation during airway: present Sedation level during airway: GA Final airway details: Final airway type: supraglottic airway Final supraglottic airway: IGel SGA size: 4 Number of attempts: 1 Planned trial extubation: yes Juan M Wood MD ANESTHESIA ORDERABLES Final Result * NJ AN PROCEDURE PLACEHOLDER (08/15/2025 12:36 PM CDT) Narrative Bolivar Winston MD - 08/15/2025 12:36 PM CDT Bolivar Winston MD 08/16/2025 10:23 AM Peripheral Block Patient location during procedure: pre-op holding Reason for block: post-op pain management per surgeon request Ultrasound image in chart or stored: yes Block type: single shot Laterality: left Block type: brachial - supraclavicular Staff: Supervising provider: Bolivar Winston MD Placed by: Resident: Jovita Payan MD Procedure prep: Preprocedure checklist: patient identified, procedure contraindications assessed, site marked, procedure consent, surgical consent, IV checked, risks, benefits and alternatives discussed, monitors and equipment checked and timeout performed Patient position: head of bed elevated Procedure performed while patient: sedate with meaningful contact Monitoring: ECG, oximetry and blood pressure Supplemental O2: nasal cannula Prep solution: chlorhexidine/alcohol PPE: provider hat/mask, sterile gloves and sterile probe cover and gel Peripheral nerve block: Technique: ultrasound guided Needle type: insulated and short-bevel Needle gauge: 22 G Needle length: 80 mm Injection assessment: injection made incrementally with constant monitoring, local visualized surrounding nerve on ultrasound, negative aspiration for heme, no paresthesias noted, normal resistance to injection and see flowsheet for medication details Assessment: Block success: complete Events: patient tolerated procedure well with no complications Jovita Payan MD ANESTHESIA ORDERABLES Final Res ult * eGFR (08/07/2025 9:35 AM CDT) eGFR >90 >=60 mL/min/1. 73 m2 Comment: Interpretive Data Reference Interval Normal >/= 90 mL/min/1.73m2 Mildly decreased* 60 - 89 mL/min/1.73m2 Mildly to moderately decreased 45 - 59 mL/min/1.73m2 Moderately to severely decreased 30 - 44 mL/min/1.73m2 Severely decreased 15 - 29 mL/min/1.73m2 Kidney Failure < 15 mL/min/1.73m2 *Relative to young adult level Estimated glomerular filtration rate is determined by the 2020 CKD-EPI equation recommended by the National Kid[employer] (A Unifying Approach to GFR Estimation: Recommendations of the NKF-ASK Task Force on Reassessing the Inclusion of Race in Diagnosing Kidney Disease, JASN 2020). The CKD-EPI equation should not be used for patients with unstable renal function and has not been validated in children and those over 70. Current interpretive data was last reviewed 2021. Blood 08/07/2025 9:35 AM CDT 08/07/2025 10:53 AM CDT Neymar Metcalf MD LAB BLOOD ORDERABLES Kayla ruiz Result [facility] [address] [facility] Department [place] [address] * Differential, auto (08/07/2025 9:35 AM CDT) Pathologist [facility] Neutrophil abs 3.01 1.50 - 6.50 K/cumm Imm gran abs 0.01 0.00 - 0.10 K/cumm [facility] Lymphocyte abs 1.76 0.80 - 3.30 K/cumm [facility] Monocyte abs 0.61 0.20 - 0.80 K/cumm [facility] Eosinophil abs 0.11 0.00 - 0.50 K/cumm [facility] Basophil abs 0.07 0.00 - 0.10 K/cumm [facility] Neutrophil pct 53.9 % [facility] Comment: Interpretive Data Percent cell count reference ranges are not reported, since discordance with absolute values may lead to misinterpretation of CBC data. Current Interpretive Data was last revised on 2018. Imm gran pct 0.2 % [facility] Comment: Interpretive Data Percent cell count reference ranges are not reported, since discordance with absolute values may lead to misinterpretation of CBC data. Current Interpretive Data was last revised on 2018. Lymphocyte pct 31.6 % [facility] Comment: Interpretive Data Percent cell count reference ranges are not reported, since discordance with absolute values may lead to misinterpretation of CBC data. Current Interpretive Data was last revised on 2018. Monocyte pct 11.0 % [facility] Comment: Interpretive Data Percent cell count reference ranges are not reported, since discordance with absolute values may lead to misinterpretation of CBC data. Current Interpretive Data was last revised on 2018. Eosinophil pct 2.0 % [facility] Comment: Interpretive Data Percent cell count reference ranges are not reported, since discordance with absolute values may lead to misinterpretation of CBC data. Current Interpretive Data was last revised on 2018. Basophil pct 1.3 % [facility] Comment: Interpretive Data Percent cell count reference ranges are not reported, since discordance with absolute values may lead to misinterpretation of CBC data. Current Interpretive Data was last revised on 2018. Blood 08/07/2025 9:35 AM CDT 08/07/2025 10:53 AM CDT us Neymar Metcalf MD LAB BLOOD ORDERABLES Kayla ruiz Result [facility] [address] [facility] Department of Laboratories [place], [place] [phone] * (ABNORMAL) CBC with auto differential (08/07/2025 9:35 AM CDT) WBC 5.57 3.80 - 9.90 K/cumm Hgb 14.6 11.9 - 15.5 g/dL [facility] Hct 43.2 35.6 - 45.5 % [facility] Plt 259 150 - 400 K/cumm [facility] MPV 11.0 9.1 - 12.3 fL [facility] RBC 4.49 3.90 - 5.20 M/cumm [facility] MCV 96.2 81.3 - 96.4 fL [facility] MCH 32.5 27.1 - 33.3 pg [facility] MCHC 33.8 32.3 - 35.7 g/dL [facility] RDW CV 13.9 11.1 - 14.9 % [facility] RDW SD 49.6(H) 35.7 - 48.1 fL [facility] NRBC abs 0.00 0.00 - 0.01 K/cumm [facility] Blood 08/07/2025 9:35 AM CDT 08/07/2025 10:53 AM CDT Neymar Metcalf MD LAB BLOOD ORDERABLES Kayla l Result Performing Organization Address [facility] [address]/[facility] Co de Phone Number [address] [place] [address] * Vitamin D 25 hydroxy (08/07/2025 9:35 AM CDT) Vitamin D 25-OH 73.0 30.0 - 80.0 ng/mL Blood 08/07/2025 9:35 AM CDT 08/07/2025 10:53 AM CDT Neymar Metcalf MD LAB BLOOD ORDERABLES Kayla l Result Performing Organization Address [facility] [address]/[facility] de Phone Number [address] [place] [address] * (ABNORMAL) Lipid panel (08/07/2025 9:35 AM CDT) Cholesterol 376(H) 30 - 199 mg/dL Comment: Interpretive Data Ages < or = 19 years Acceptable: <170 mg/dL Borderline high: 170-199 mg/dL High: >or= 200 mg/dL Ages > or = 20 years Desirable: <200 mg/dL Borderline high: 200-239 mg/dL High: >or= 240 mg/dL Literature References: 1. Expert Panel on Integrated Guidelines for Cardiovascular Health and Risk Reduction in Children and Adolescents. Pediatrics 2011;128:S213 2. NCEP Expert Panel. Circulation 2004;110:227 Current Interpretive Data was last revised on 2018. Triglycerides 59 <=149 mg/dL [facility] Comment: Interpretive Data Ages < or = 9 years Acceptable: <75 mg/dL Borderline high: 75-99 mg/dL High: >or= 100 mg/dL Ages 10 to 20 years Acceptable: <90 mg/dL Borderline high: 90-129 mg/dL High: >or= 130 mg/dL Ages > or = 20 years Desirable: <150 mg/dL Borderline high: 150-199 mg/dL High: 200-499 mg/dL Very high: >or= 499 mg/dL Literature References: 1. Expert Panel on Integrated Guidelines for Cardiovascular Health and Risk Reduction in Children and Adolescents. Pediatrics 2011;128:S213 2. NCEP Expert Panel. Circulation 2004;110:227 Current Interpretive Data was last revised on 2018. HDL 135 >=40 mg/dL [facility] Comment: Interpretive Data Ages < or = 19 years Acceptable: >45 mg/dL Borderline low: 40-45 mg/dL Low: <40 mg/dL Ages > or = 20 years Desirable: >or= 60 mg/dL Low: <40 mg/dL Literature References: 1. Expert Panel on Integrated Guidelines for Cardiovascular Health and Risk Reduction in Children and Adolescents. Pediatrics 2011;128:S213 2. NCEP Expert Panel. Circulation 2004;110:227 Current Interpretive Data was last revised on 2018. LDL, calculated 235(H) <=129 mg/dL [facility] Comment: Interpretive Data Ages < or = 19 years Acceptable: <110 mg/dL Borderline high: 110-129 mg/dL High: >or= 130 mg/dL Ages > or = 20 years Optimal: <100 mg/dL Near optimal: 100-129 mg/dL Borderline high: 130-159 mg/dL High: >160 mg/dL Calculated using the Ray LDL-C estimating equation. This equation was implemented on 2024. Prior to this date LDL-C was estimated using the Friedewald equation. Literature References: 1. Expert Panel on Integrated Guidelines for Cardiovascular Health and Risk Reduction in Children and Adolescents. Pediatrics 2011;128:S213 2. NCEP Expert Panel. Circulation 2004;110:227 3. Ray Louis al. HARJIT Cardiol. 2020 February 14;5(5):540-548. doi: 10.1001/jamacardio.2020.0013 Current Interpretive Data was last revised on 2024. Non-HDL Cholesterol 241 mg/dL [facility] Comment: Interpretive Data Ages < or = 19 years Acceptable: <120 mg/dL Borderline high: 120-144 mg/dL High: >145 mg/dL Ages > or = 20 years When triglycerides are >200 mg/dL, Non-HDL cholesterol is a secondary target of therapy with treatment goals that are 30 mg/dL greater than the LDL cholesterol target. Literature References: 1. Expert Panel on Integrated Guidelines for Cardiovascular Health and Risk Reduction in Children and Adolescents. Pediatrics 2011;128:S213 2. NCEP Expert Panel. Circulation 2004;110:227 Current Interpretive Data was last revised on 2018. Chol/HDL ratio 3 [facility] Blood 08/07/2025 9:35 AM CDT 08/07/2025 10:53 AM CDT us Neymar Metcalf MD LAB BLOOD ORDERABLES Kayla l Result [facility] [address] [facility] Department of Laboratories [place], [place] [id number] * (ABNORMAL) Comprehensive metabolic panel (08/07/2025 9:35 AM CDT) Sodium 137 135 - 145 mmol/L Potassium, pl 4.4 3.3 - 4.9 mmol/L [facility] Chloride 97 97 - 110 mmol/L [facility] CO2 28 22 - 32 mmol/L [facility] Anion gap 12 2 - 15 mmol/L [facility] BUN 14 6 - 25 mg/dL [facility] Creatinine 0.63 0.60 - 1.10 mg/dL [facility] Glucose 101 70 - 199 mg/dL [facility] Comment: Interpretive Data Fasting glucose >/= 126 mg/dl is diagnostic for diabetes. Fasting is defined as no caloric intake for at least 8 hours. Fasting glucose between 100 mg/dl to 125 mg/dl is diagnostic of prediabetes. In a patient with classic symptoms of hyperglycemia or hyperglycemic crisis, a random glucose >/= 200 mg/dl is diagnostic for diabetes. In the absence of unequivocal hyperglycemia, results should be confirmed by repeat testing. The classification and Diagnosis of Diabetes Diabetes Care 2022; 46: S19-S40. Current interpretive data was last revised 2022. Calcium 10.9(H) 8.5 - 10.3 mg/dL [facility] Bilirubin, total 0.6 0.1 - 1.2 mg/dL [facility] Protein, pl 7.7 6.5 - 8.5 g/dL [facility] Albumin 4.6 3.5 - 5.0 g/dL [facility] Alk phos 51 40 - 130 Units/L [facility] ALT 19 7 - 45 Units/L [facility] AST 32 10 - 45 Units/L [facility] Blood 08/07/2025 9:35 AM CDT 08/07/2025 10:53 AM CDT us Neymar Metcalf MD LAB BLOOD ORDERABLES Kayla ruiz Result [facility] [address] [facility] Department [place] [address] * XR Hand Bilateral 3 or More Views of Each (07/09/2025 12:46 PM CDT) Anatomical Region Laterality Modality Upper Extremities, Hand Computed Radiography 07/09/2025 2:41 PM CDT Impressions 07/09/2025 3:25 PM CDT 1. Healed fracture deformity of the right 5th proximal phalanx with a fixed flexion deformity of the right 5th finger. 2. Moderate bilateral 1st carpometacarpal joint osteoarthritis. Dictated by: Mahsa Sue M.D. The radiology attending physician has personally reviewed this study, and had reviewed and/or edited this written report and agrees with it. Electronically signed by: Jagjit Rincon M.D. Narrative 07/09/2025 3:25 PM CDT EXAMINATION: XR HAND BILATERAL 3 OR MORE VIEWS OF EACH HISTORY: Bilateral Dupuytren's contracture FINDINGS: 3 radiographs of the right hand and 4 radiographs of the left hand were provided for interpretation without comparison. There is no acute fracture or dislocation. There is a healed fracture deformity of the right 5th proximal phalanx with a fixed flexion deformity of the right 5th finger. There is moderate bilateral 1st carpometacarpal joint osteoarthritis. Procedure Note Jagjit Rincon MD PhD - 07/09/2025 EXAMINATION: XR HAND BILATERAL 3 OR MORE VIEWS OF EACH HISTORY: Bilateral Dupuytren's contracture FINDINGS: 3 radiographs of the right hand and 4 radiographs of the left hand were provided for interpretation without comparison. There is no acute fracture or dislocation. There is a healed fracture deformity of the right 5th proximal phalanx with a fixed flexion deformity of the right 5th finger. There is moderate bilateral 1st carpometacarpal joint osteoarthritis. IMPRESSION: 1. Healed fracture deformity of the right 5th proximal phalanx with a fixed flexion deformity of the right 5th finger. 2. Moderate bilateral 1st carpometacarpal joint osteoarthritis. Dictated by: Mahsa Sue M.D. The radiology attending physician has personally reviewed this study, and had reviewed and/or edited this written report and agrees with it. Electronically signed by: Jagjit Rincon M.D. Liseth Brooks MD PhD IMG XR PROCEDURES Final Result * Pap and HPV, reflex to HPV Genotypes (06/03/2025 3:43 PM CDT) CLINICAL INFORMATION: [facility] Comment:WELL WOMEN LMP [facility] Comment:UNKNOWN Previous Pap [facility] Comment:NONE GIVEN Prev. Bx [facility] Comment:NONE GIVEN SOURCE: [facility] Comment:Cervix, Endocervix Pap, specimen adequacy [facility] Comment:SATISFACTORY FOR RIOS LUATION HPV interp [facility] Comment: Cytology Results: Negative for intraepithelial lesion or malignancy. Atrophic pattern; predominantly parabasal cells COMMENTS [facility] Comment: This Pap test has been evaluated with the ThinPrep(R) Imaging System. Shift Nurse Manager [facility] Comment: BES, CT(ASCP) CT Screening Location: [facility], [facility] [address] [place] [address] CLIA: [id number] Slide preparation performed at: [facility], [address] [place] [address], [address] CLIA: [id number] Comment [facility] Comment: EXPLANATORY NOTE: The Pap is a [...] High Risk E6/E7 Not Detected NOT DETECTED [facility] Comment: Not Detected High Risk HPV types (16,18,31,33,35,39,45,51,52, 56,58,59,66,68) were not detected. Other HPV types which cause anogenital lesions may be present. The significance of the other types of HPV in malignant processes has not been established. Methodology: Real Time PCR Thin prep-Endocervica l 06/03/2025 3:43 PM CDT 06/04/2025 6:32 PM CDT Matilda Salinas MD LAB CYTOLOGY ORDERA BLES Final Result [facility] [address] [place] [address] [address] * HM MAMMOGRAPHY (08/28/2024 1:24 PM PAINT SPRAY INSPECTOR) Historical Provider HEALTH MAINTENANCE Final Result * COLONOSCOPY (10/06/2023 8:29 AM PAINT SPRAY INSPECTOR) Anatomical Region Laterality Modality Other Narrative Procedure Note German Urbano MD - 10/06/2023 8:29 AM CST [facility] Patient Name: Nel Devlin Procedure Date: 10/06/2023 8:29 AM Date of : 1960 Admit Type: Outpatient Age: 62 Gender: Female Attending MD: German Urbano M.D. Room: [facility] END[facility]COPY ROOM 1 Note Status: Finalized [...] scope was passed under direct vision. TheColonoscope [id number] was introduced through the anus and advanced [...] history of colonic polyps CPT copyright 2020 [employer]. All rights reserved. The codes documented in this report are preliminary and upon pharmacy informaticist reviewmay be revised to meet current compliance requirements. Recognized by the [employer] for promoting quality [...] - GENERA [place] [address] [address] Department [place] [address] from Last 3 Months or Most Recently Relevant to Health Maintenance Insurance ANTHEM ACCESS ANTHEM ACCESS AYO ACCESS Advance Directives For more information, please contact: [phone] * Full Code (Latest Code Status on File) Date Activated Date Inactivated Comments 10/06/2023 8:32 AM 10/06/2023 2:57 PM * Full Code Date Activated Date Inactivated Comments 10/06/2023 8:32 AM 10/06/2023 8:32 AM Care Teams Dial Printer Relationship Specialty Start Date End Date Neymar Metcalf MD [address] [place] [address] PCP - General Family Medicine 01/04/22
--- OUTSIDE RECORDS SUMMARY | 2025-10-08 14:48 | XMS_ITS | Encounter Summary ---
Author Organization [facility] Healthcare Address [address] [place] [address] Care Team Providers Care Strategic Development Manager Name Role Phone Neymar Metcalf MD Primary Care Provider [phone] Reason for Visit * Reason Onset Date Comments Hypertension 10/08/2025 Encounter Details Date Type Department Care Team (Late st Contact Info) Description 10/08/2025 Nurse Triage [facility] [address] [phone] Neymar Metcalf MD [address] [place] [address] Social History Tobacco Use Types Packs/Day Years [...] often do you attend chur ch or moravian services? More than 4 times per year 07/18/2023 Do you belong to any clubs o r organizations such as synagogue groups, unions, fraternal or athletic groups, or [...] place to sleep or slept in a fci (including now)? 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 No additional action required at this time. Reason for Conversation Hypertension Background Spoke with pt, today at the time of our call pts BP is 217/122 she has no CP, no SOB, no visual disturbances, no headache-pt did take her BP meds today. Pt has been dealing with some viral things over the past week and went to on Tuesday where they found her BP to be 201/102 as well, it came downthen with some fluids and they suspected pt had has a lot of sodium with the extra electrolyte drinks she was consuming. Pt had been running a fever, body aches, lost her voice prior to that but mostof those symptoms are gone now. Last night pt has a little lightheadedness and legs twitching and felt like she was low on potassium so she ate some bananas, drank some extra electrolytes and feelingbetter today. Pt said he gets very anxious about her BP so she has not been checking it at home since then. Pt is asking is she needs to go to ED. Provider contacted via secure chat for ED disposition consult. Recommendation from provider:No response/sent to ED Spoke with pt, advised her to report to the ED and she is agreeable. BP Readings from Last 3 Encounters: 08/15/25 151/82 08/08/25 134/80 06/03/25 142/86 Disposition Go to ED/C Now (or to Office With PCP Approval) Reason for Disposition Patient sounds very sick or weak to the triager Protocols Used Blood Pressure - [id number] TRIC CLOCK MECHANIC * Telephone Encounter - Sharona Bailey RN - 10/08/2025 1:45 PM ELECTRIC CLOCK MECHANIC Regarding: Blood pressure 200's over something. ----- Message from Joann Feng sent at 10/08/2025 1:38 PM ELECTRIC CLOCK MECHANIC ----- Symptom Based Call Chief Complaint(s): Blood pressure 200's over something. Duration: 3 days ago What type of symptom(s) is the patient experiencing? Red Flag. Is the patient concerned they are experiencing a medical emergency requiring an ambulance? No Additional Comments: Patient proceeded to an Urgent Care 3 days ago for sinus symptoms. He blood pressure was elevated but eventually lowered when she was there. They told her it could have been fromthe electrolyte drinks with all of the sodium she was drinking to stay hydrated. She was given antibiotics for sinuses. Patient said yesterday, she felt as if her blood pressure was elevating again due to cramps, and insomnia, with maybe feeling as if she was going to become lightheaded. Does message need to be routed? Yes-Action Needed TRIC CLOCK MECHANIC documented in this encounter Plan of Treatment Not on file documented as of this encounter Visit Diagnoses Not on filedocumented in this encounter Care Teams Strategic Development Manager Relationship Specialty Start Date End Date Neymar Metcalf MD [address] [place] [address] PCP - General Family Medicine 01/04/22 documented as of this encounter
--- OUTSIDE RECORDS SUMMARY | 2025-10-08 14:48 | XMS_ITS | Encounter Summary ---
Author Organization [facility] Healthcare Address [address] [place] [address] Care Team Providers Care Taxonomist Name Role Phone Neymar Metcalf MD Primary Care Provider [phone] Encounter Details Date Type Department Care Team (Late st Contact Info) Description 08/21/2025 Results Follow-Up [facility] [address] [phone] Neymar Metcalf MD [address] [place] [address] Surgical pathology Social History Tobacco Use Types Packs/Day Years [...] any clubs o r organizations such as shinto groups, unions, fraternal or athletic groups, or [...] place to sleep or slept in a usp (including now)? 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
--- OUTSIDE RECORDS SUMMARY | 2025-10-08 17:33 | XMS_ITS | Clinical Summary ---
Author Organization [facility] Address [address] [facility] [address] [place] [address] Phone Care Team Providers Care Marble Installer Name Role Phone Neymar Metcalf MD Primary Care Provider [phone] Allergies No known active allergies Medications acetaminophen [...] 05/24/2023 Assessment & Plan (08/23/2025 8:46 AM PAINTER AND BODY WORK): Stable, well controlled; injury occurred 2 years ago was due to significant fall, patient reports no pain or limitations at this time Assessment & Plan (05/10/2024 1:01 PM CDT): Stable, well controlled; no further symptoms; healing well Assessment & Plan (11/01/2023 2:15 PM PAINTER AND BODY WORK): Stable, well controlled; no significant back pain, [...] back. Assessment & Plan (08/23/2025 8:46 AM PAINTER AND BODY WORK): Stable, height compression fracture in upper back, [...] sending her to the [facility] [place] She declines. Will continue with her calcium and vit D She has started to exercise more run/walking. Will plan to repeat in 2023 Assessment & Plan (11/01/2023 2:15 PM PAINTER AND BODY WORK): Compression fracture in upper back; continue to [...] 01/04/2022 Assessment & Plan (08/23/2025 8:45 AM PAINTER AND BODY WORK): Stable, well controlled, blood pressure at goal; [...] b.i.d. 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, but will continue to monitor given a notable according flexor tendon sheath in both hands Encounters Date Type Department Care Team Description 10/08/2025 Nurse Triage [facility] [address] [address] Neymar Metcalf MD 09/27/2025 8:45 AM PAINTER AND BODY WORK Office Visit [facility] Medicine Surgery [address] [place] [address] Advanced Medicine 6th [place] [address] Liseth Brooks MD PhD Dupuytren's disease of palm of left hand (Primary Dx) 08/27/2025 11:55 AM PAINTER AND BODY WORK Therapy [facility] Medicine Occupational Therapy [address] [place] [address] Advanced Medicine 6th [place] [address] Charlene Holt OT Dupuytren's disease of palm of left hand (Primary Dx) 08/27/2025 10:30 AM PAINTER AND BODY WORK Office Visit [facility] Medicine Surgery [address] [place] [address] [place] [address] Liseth Brooks MD PhD Dupuytren's disease of palm of left hand (Primary Dx) 08/27/2025 [facility] [address] [place] [address] [place] [address] 08/21/2025 Results [facility] [address] [address] Neymar Metcalf MD Surgical pathology 08/15/2025 1:37 PM CDT - 08/15/2025 4:26 PM CDT Surgery [facility] Operating [facility] [address] [place] [address] Liseth Brooks MD PhD RELEASE DUPUYTRENS CONTRACTURE - Excision of Dupuytren's disease LEFT hand, w/ partial fasciectomy 08/15/2025 12:28 PM CDT Anesthesia Event [facility] Operating Room [facility] ([facility]) [address] [place] [address] Saad Christian MD Brohi, Ashlee Renae, NP 08/15/2025 10:33 AM CDT - 08/15/2025 3:00 PM CDT Hospital Encounter [facility] Operating [facility] ([facility]) [address] [place] [address] Liseth Brooks MD PhD Dupuytren's disease of palm of left hand Discharge Disposition: Discharge to home or self care 08/08/2025 8:45 AM CDT Office Visit [facility] [address] [phone] Neymar Metcalf MD Hypertension, essential (Primary Dx); Dyslipidemia; Compression fracture of body of thoracic vertebra (HCC); Osteopenia of hip, unspecified laterality 08/08/2025 Results [facility] [address] [phone] Neymar Metcalf MD Lipid panel, CBC with auto differential, Comprehensive metabolic panel, Additional followed-up results: 3 08/07/2025 9:30 AM CDT Lab [address] [address] Dyslipidemia; Osteopenia of hip, unspecified laterality 07/30/2025 Telephone [facility] [address] [phone] Neymar Metcalf MD Labs 07/09/2025 12:30 PM CDT - 07/09/2025 11:59 PM CDT Hospital Encounter [facility] Radiology [facility] ([facility]) [address] [place] [address] Liseth Brooks MD PhD Dupuytren's contracture of both hands Discharge Disposition: Discharge to home or self care 07/09/2025 12:30 PM CDT Office Visit [facility] Medicine Surgery [address] [facility] 6th [place] [phone] Liseth Brooks MD PhD Dupuytren's contracture of [...] Stanley Mother's Brother Bill Alive Paternal Grandfather dE Stanley Sister Eileen Arabella Social History Tobacco [...] often do you attend chur ch or methodist services? More than 4 times per year 07/18/2023 Do you belong to any clubs o r organizations such as samaritan groups, unions, fraternal or athletic groups, or [...] place to sleep or slept in a detention (including now)? No 07/18/2023 Humiliation, Afraid, Rape, [...] on file Legal Sex Female 11:18 AM PAINTER AND BODY WORK Gender Identity Female 04/22/2022 11:34 AM CDT [...] ANESTHESIA INTUBATION Routine 08/15/2025 12:55 PM CDT MD AN PROCEDURE PLACEHOLDER Routine 08/15/2025 12:36 PM [...] exam HM MAMMOGRAPHY Routine 08/28/2024 1:24 PM PAINTER AND BODY WORK COLONOSCOPY 10/06/2023 8:29 AM PAINTER AND BODY WORK HEPATITIS C ANTIBODY Routine 01/04/2022 11:44 AM CDT Encounter for hepatitis C screening test for low risk patient from Last 3 Months or Most Recently Relevant to Health Maintenance Results * Surgical pathology (08/15/2025 1:29 PM CDT) Other (Other) 08/15/2025 1:2 9 PM CDT Narrative PATHOLOGY [facility] - 08/20/2025 11:57 AM PAINTER AND BODY WORK [facility] results best viewed via link to PDF [facility] [place] [address] Note to Patients: This report may contain [...] Gender: F : 1960 (Age: 64) Address: [address] [place] [phone] Hospital #: [id number] Taken:08/15/2025 Received:08/15/2025 Reported: 08/20/2025 Patient Type: [facility] Service: Surgery Location: Physician(s): Liam Chen M.D. [...] Surgical Pathology and Flow Cytometry Departments at [facility] as part of an ongoing quality assurance director program and in compliance with federally mandated [...] Surgical Pathology and Flow Cytometry Departments of [facility]. It has not been cleared or approved by the U. S. Food and Drug Administration. IMAGES AND SCANNED DOCUMENTS, IF INCLUDED, ONLY VIEWABLE IN PDF VERSION OF REPORT Liseth Brooks MD PhD LAB PATHOLOGY ORDERABLE S Final Result PATHOLOGY [facility] 3rd Floor [place], [place] [phone] * Airway (08/15/2025 12:55 PM CDT) Narrative [...] Wood MD ANESTHESIA ORDERABLES Final Result * MD AN PROCEDURE PLACEHOLDER (08/15/2025 12:36 PM CDT) [...] MD LAB BLOOD ORDERABLES Kayla ruiz Result [facility] [address] [facility] Department [place] [address] * Differential, auto (08/07/2025 9:35 AM CDT) Pathologist [facility] Neutrophil abs 3.01 1.50 - 6.50 K/cumm Imm gran abs 0.01 0.00 - 0.10 K/cumm [facility] Lymphocyte abs 1.76 0.80 - 3.30 K/cumm [facility] Monocyte abs 0.61 0.20 - 0.80 K/cumm [facility] Eosinophil abs 0.11 0.00 - 0.50 K/cumm [facility] Basophil abs 0.07 0.00 - 0.10 K/cumm [facility] Neutrophil pct 53.9 % [facility] Comment: Interpretive Data Percent cell count reference ranges are not reported, since discordance with absolute values may lead to misinterpretation of CBC data. Current Interpretive Data was last revised on 2018. Imm gran pct 0.2 % [facility] Comment: Interpretive Data Percent cell count reference ranges are not reported, since discordance with absolute values may lead to misinterpretation of CBC data. Current Interpretive Data was last revised on 2018. Lymphocyte pct 31.6 % [facility] Comment: Interpretive Data Percent cell count reference ranges are not reported, since discordance with absolute values may lead to misinterpretation of CBC data. Current Interpretive Data was last revised on 2018. Monocyte pct 11.0 % [facility] Comment: Interpretive Data Percent cell count reference ranges are not reported, since discordance with absolute values may lead to misinterpretation of CBC data. Current Interpretive Data was last revised on 2018. Eosinophil pct 2.0 % [facility] Comment: Interpretive Data Percent cell count reference ranges are not reported, since discordance with absolute values may lead to misinterpretation of CBC data. Current Interpretive Data was last revised on 2018. Basophil pct 1.3 % [facility] Comment: Interpretive Data Percent cell count reference ranges are not reported, since discordance with absolute values may lead to misinterpretation of CBC data. Current Interpretive Data was last revised on 2018. Blood 08/07/2025 9:35 AM CDT 08/07/2025 10:53 AM CDT us Neymar Metcalf MD LAB BLOOD ORDERABLES Kayla ruiz Result [facility] [address] [facility] Department of Laboratories [place], [place] [phone] * (ABNORMAL) CBC with auto differential (08/07/2025 9:35 AM CDT) WBC 5.57 3.80 - 9.90 K/cumm Hgb 14.6 11.9 - 15.5 g/dL [facility] Hct 43.2 35.6 - 45.5 % [facility] Plt 259 150 - 400 K/cumm [facility] MPV 11.0 9.1 - 12.3 fL [facility] RBC 4.49 3.90 - 5.20 M/cumm [facility] MCV 96.2 81.3 - 96.4 fL [facility] MCH 32.5 27.1 - 33.3 pg [facility] MCHC 33.8 32.3 - 35.7 g/dL [facility] RDW CV 13.9 11.1 - 14.9 % [facility] RDW SD 49.6(H) 35.7 - 48.1 fL [facility] NRBC abs 0.00 0.00 - 0.01 K/cumm [facility] Blood 08/07/2025 9:35 AM CDT 08/07/2025 10:53 AM CDT Neymar Metcalf MD LAB BLOOD ORDERABLES Kayla l Result Performing Organization Address [facility] Co de Phone Number [address] [place] [address] * Vitamin D 25 hydroxy (08/07/2025 9:35 AM CDT) Vitamin D 25-OH 73.0 30.0 - 80.0 ng/mL Blood 08/07/2025 9:35 AM CDT 08/07/2025 10:53 AM CDT Neymar Metcalf MD LAB BLOOD ORDERABLES Kayla l Result Performing Organization Address [facility] de Phone Number [address] [place] [address] * (ABNORMAL) Lipid panel (08/07/2025 9:35 AM [...] revised on 2018. Triglycerides 59 <=149 mg/dL [facility] Comment: Interpretive Data Ages < or = [...] revised on 2024. Non-HDL Cholesterol 241 mg/dL [facility] Comment: Interpretive Data Ages < or = [...] last revised on 2018. Chol/HDL ratio 3 [facility] Blood 08/07/2025 9:35 AM CDT 08/07/2025 10:53 AM CDT us Neymar Metcalf MD LAB BLOOD ORDERABLES Kayla l Result [facility] [address] Department of Laboratories [place], [place] [phone] * (ABNORMAL) Comprehensive metabolic panel (08/07/2025 9:35 AM CDT) Sodium 137 135 - 145 mmol/L Potassium, pl 4.4 3.3 - 4.9 mmol/L [facility] Chloride 97 97 - 110 mmol/L [facility] CO2 28 22 - 32 mmol/L [facility] Anion gap 12 2 - 15 mmol/L [facility] BUN 14 6 - 25 mg/dL [facility] Creatinine 0.63 0.60 - 1.10 mg/dL [facility] Glucose 101 70 - 199 mg/dL [facility] Comment: Interpretive Data Fasting glucose >/= 126 [...] 2022. Calcium 10.9(H) 8.5 - 10.3 mg/dL [facility] Bilirubin, total 0.6 0.1 - 1.2 mg/dL [facility] Protein, pl 7.7 6.5 - 8.5 g/dL [facility] Albumin 4.6 3.5 - 5.0 g/dL [facility] Alk phos 51 40 - 130 Units/L [facility] ALT 19 7 - 45 Units/L [facility] AST 32 10 - 45 Units/L [facility] Blood 08/07/2025 9:35 AM CDT 08/07/2025 10:53 AM CDT us Nyemar Metcalf MD LAB BLOOD ORDERABLES Kayla ruiz Result [facility] [address] [facility] Department [place] [address] * XR Hand Bilateral 3 or More [...] Genotypes (06/03/2025 3:43 PM CDT) CLINICAL INFORMATION: [facility] Comment:WELL WOMEN LMP [facility] Comment:UNKNOWN Previous Pap [facility] Comment:NONE GIVEN Prev. Bx [facility] Comment:NONE GIVEN SOURCE: [facility] Comment:Cervix, Endocervix Pap, specimen adequacy [facility] Comment:SATISFACTORY FOR RIOS LUATION HPV interp [facility] Comment: Cytology Results: Negative for intraepithelial lesion or malignancy. Atrophic pattern; predominantly parabasal cells COMMENTS [facility] Comment: This Pap test has been evaluated with the ThinPrep(R) Imaging System. Clerk [facility] Comment: BES, CT(ASCP) CT Screening Location: [facility] [place] [address] CLIA: [id number] Slide preparation performed at: [facility], [address] [place] [address], [address] CLIA: [id number] Comment [facility] Comment: EXPLANATORY NOTE: The Pap is [...] High Risk E6/E7 Not Detected NOT DETECTED [facility] Comment: Not Detected High Risk HPV types (16,18,31,33,35,39,45,51,52, 56,58,59,66,68) were not detected. Other HPV types which cause anogenital lesions may be present. The significance of the other types of HPV in malignant processes has not been established. Methodology: Real Time PCR Thin prep-Endocervica l 06/03/2025 3:43 PM CDT 06/04/2025 6:32 PM CDT Matilda Salinas MD LAB CYTOLOGY ORDERA BLES Final Result [facility] [address] [place] [address] [address] * HM MAMMOGRAPHY (08/28/2024 1:24 PM PAINTER AND BODY WORK) Historical Provider HEALTH MAINTENANCE Final Result * COLONOSCOPY (10/06/2023 8:29 AM PAINTER AND BODY WORK) Anatomical Region Laterality Modality Other Narrative Procedure Note German Urbano MD - 10/06/2023 8:29 AM CST [facility] Patient Name: Nel Devlin Procedure Date: 10/06/2023 8:29 AM Date of : 1960 Admit Type: Outpatient Age: 62 Gender: Female Attending MD: German Urbano M.D. Room: [facility] ENDOSCOPY ROOM 1 Note Status: Finalized Patient [...] scope was passed under direct vision. TheColonoscope [id number] was introduced through the anus and advanced [...] history of colonic polyps CPT copyright 2020 [employer]. All rights reserved. The codes documented in this report are preliminary and upon document analyst reviewmay be revised to meet current compliance requirements. Recognized by the [employer] for promoting quality [...] GENERA [place] [address] [address] Department [place] [address] from Last 3 Months or Most Recently Relevant to Health Maintenance Insurance ANTHEM ACCESS ANTHEM ACCESS Member Subscriber Plan / Payer (Ef fective 2019-Present) Name:Nel Devlin Member ID:[id number] Relation to Subscriber:Self Name:Nel eDvlin Subscriber ID:[id number] Payer ID:[id number] (NAIC) Type:[employer] Address: [id number] [place] [address] AYO ACCESS Advance Directives For more information, please contact: [phone] * Full Code (Latest Code Status on File) Date Activated Date Inactivated Comments 10/06/2023 8:32 AM 10/06/2023 2:57 PM * Full Code Date Activated Date Inactivated Comments 10/06/2023 8:32 AM 10/06/2023 8:32 AM Care Teams Marble Installer Relationship Specialty Start Date End Date Neymar Metcalf MD [address] [place] [address] PCP - General Family Medicine 01/04/22
--- OUTSIDE RECORDS SUMMARY | 2025-10-08 17:33 | XMS_ITS | Encounter Summary ---
Author Organization [facility] Healthcare Address [address] [place] [address] Care Team Providers Care Legal Aide Name Role Phone Neymar Metcalf MD Primary Care Provider [phone] Reason for Visit * Reason Onset Date Comments Hypertension 10/08/2025 Encounter Details Date Type Department Care Team (Late st Contact Info) Description 10/08/2025 Nurse Triage [facility] [address] [phone] Neymar Metcalf MD [address] [place] [address] Social History Tobacco Use Types Packs/Day Years [...] often do you attend chur ch or muslim services? More than 4 times per year 07/18/2023 Do you belong to any clubs o r organizations such as zoroastrian groups, unions, fraternal or athletic groups, or [...] in a chcf (including now)? No 07/18/2023 Humiliation, Afraid, Rape, [...] on file Legal Sex Female 11:18 AM CONSOLE MANAGER Gender Identity Female 04/22/2022 11:34 AM CDT Sexual Orientation Straight 04/22/2022 11 :34 AM CDT documented as of this encounter Miscellaneous Notes * Telephone Encounter - Armida Lin RN - 10/08/2025 4:13 PM CST Called and spoke with patient. Patient was at [facility] Emergency Department at time of call. Instructed patient to contact the office to update on any medication adjustments/follow-up recommendations given by ED Hospitalist. Patient verbalized understanding and was appreciative of follow-up. OLE MANAGER * Telephone Encounter - Sharona Bailey RN - 10/08/2025 1:48 PM CONSOLE MANAGER ED FYI ONLY to Neymar Metcalf MD. [...] 08/08/25 134/80 06/03/25 142/86 [place]position Go to [place] [place] (or to Office With PCP Approval) Reason for Disposition Patient sounds very sick or weak to the triager Protocols Used Blood Pressure - [id number]-GQ OLE MANAGER * Telephone Encounter - Sharona Bailey RN - 10/08/2025 1:45 PM CONSOLE MANAGER Regarding: Blood pressure 200's over something. ----- Message from Joann Feng sent at 10/08/2025 1:38 PM CONSOLE MANAGER ----- Symptom Based Call Chief Complaint(s): Blood [...] message need to be routed? Yes-Action Needed OLE MANAGER documented in this encounter Plan of Treatment Not on file documented as of this encounter Visit Diagnoses Not on filedocumented in this encounter Care Teams Legal Aide Relationship Specialty Start Date End Date Neymar Metcalf MD [address] [place] [address] PCP - General Family Medicine 01/04/22 documented as of this encounter
--- OUTSIDE RECORDS SUMMARY | 2025-10-08 17:33 | XMS_ITS | Encounter Summary ---
Author Organization [facility] Healthcare Address [address] [place] [address] Care Team Providers Care Galley Worker Name Role Phone Neymar Metcalf MD Primary Care Provider [phone] Encounter Details Date Type Department Care Team (Late st Contact Info) Description 08/08/2025 Results Follow-Up [facility] of [address] [phone] Neymar Metcalf MD [address] [place] [address] Lipid panel, CBC with auto differential, Comprehensive [...] How often do you attend chur or samaritan services? More than 4 times per year 07/18/2023 Do you belong to any clubs o r organizations such as taoism groups, unions, fraternal or athletic groups, or [...] place to sleep or slept in a senior care (including now)? No 07/18/2023 Humiliation, Afraid, Rape, [...] on file Legal Sex Female 11:18 AM NEONATAL PEDIATRIC NURSE Gender Identity Female 04/22/2022 11:34 AM CDT Sexual Orientation Straight 04/22/2022 11 :34 AM CDT documented as of this encounter Plan of Treatment Not on file documented as of this encounter Visit Diagnoses Not on filedocumented in this encounter Care Teams Galley Worker Relationship Specialty Start Date End Date [place] [address] PCP - General Family Medicine 01/04/22 documented as of this encounter
--- OUTSIDE RECORDS SUMMARY | 2025-10-08 17:33 | XMS_ITS | Clinical Summary ---
Author Organization [employer] Address [address] [facility] [place] [address] Care Team Providers Care Livestock Brands Inspector Name Role Phone Aemya Lockett MD Primary Care Provide r Allergies [...] Medical Devices Not on file Care Teams Livestock Brands Inspector Relationship Specialty Start Date End Date Ameya [place]ett MD [id number] [address] PCP - General Family Medicine 02/25/21
--- OUTSIDE RECORDS SUMMARY | 2025-10-08 17:33 | XMS_ITS | Encounter Summary ---
Author Organization [facility] Healthcare Address [address] [place] [address] Care Team Providers Care Flanging Roll Operator Name Role Phone Neymar Metcalf MD Primary Care Provider [phone] Encounter Details Date Type Department Care Team (Late st Contact Info) Description 08/21/2025 Results Follow-Up [facility] of [address] [phone] Neymar Metcalf MD [address] [place] [address] Surgical pathology Social History Tobacco Use Types [...] often do you attend chur ch or yazidi services? More than 4 times per year 07/18/2023 Do you belong to any clubs o r organizations such as jainism groups, unions, fraternal or athletic groups, or [...] place to sleep or slept in a long-term (including now)? No 07/18/2023 Humiliation, Afraid, Rape, [...] on file Legal Sex Female 11:18 AM ADMINISTRATIVE PROGRAM SPECIALIST Gender Identity Female 04/22/2022 11:34 AM CDT Sexual Orientation Straight 04/22/2022 11 :34 AM CDT documented as of this encounter Plan of Treatment Not on file documented as of this encounter Visit Diagnoses Not on filedocumented in this encounter Care Teams Flanging Roll Operator Relationship Specialty Start Date End [place] [address] PCP - General Family Medicine 01/04/22 documented as of this encounter
--- NOTE | 2025-10-08 17:53 | ECG_ITS ---
Test Date: 2025-10-08 18:28:20 Measurements Intervals [place] Rate: 63 P: 54 [place]: 168 QRS: 45 QRSD: 88 T: 47 QT: 404 QTc: 414 Interpretive Statements SINUS RHYTHM BASELINE ARTIFACT- I, III, AVL, V5 NORMAL ECG Compared to ECG 04/21/2025 23:23:45 No significant changes Electronically Signed On 10-08-2025 20:37:00 MECHANICAL MANUFACTURING ENGINEER by Danilo Weiss D.O.
[2025-10-08 18:44] LABS: Add Urine Microscopic? NO; Appearance Urine Clear (Clear); Glucose Urine UA Negative (Negative); Leukocyte Esterase Ur Negative LEU/UL (Negative); Nitrate Urine Negative (Negative); Specific Grav Ur 1.003 (1.001-1.035)
[2025-10-08 18:56] LABS: Hematocrit 38.7 % (37.0-47.0); Hemoglobin 13.5 g/dL (12.0-15.0); Immature Granulocyte Percent A 0.5 % (0-0.5); Lymphocytes Absolute Auto 1.80 K/mm3 (0.9-3.2); Mean Corpuscular HGB Conc 34.9 g/dl (32-36); Mean Corpuscular Hemoglobin 32.5 pg (26-34); Mean Corpuscular Volume 93.3 fl (80-100); Nucleated Red Blood Cells Absolute Auto 0.000 K/mm3 (0.0-0.012); Nucleated Red Blood Cells Perc 0.0 % (0.0-0.2); Platelet Count Result 290 k/mm3 (150-375); Red Blood Count 4.15 M/mm3 (4.2-5.4); White Blood Count 5.6 K/mm3 (4.5-10.0)
[2025-10-08 19:10] LABS: INR 0.9; Prothrombin Time 12.5 Seconds (11.1-14.7)
[2025-10-08 19:11] LABS: Partial Thromboplastin Time 28.0 Seconds (22.3-36.8)
[2025-10-08 19:12] LABS: Alanine Aminotransferase 25 U/L (6-35); Albumin Level 4.7 g/dL (3.5-5.1); Alkaline Phosphatase 56 U/L (38-126); Anion Gap 8 mmol/L (4-12); Aspartate Amino Transferase 42 U/L (14-36); Bilirubin,Total 0.6 mg/dL (0.2-1.3); Blood Urea Nitrogen 9 mg/dL (7-17); Calcium 9.9 mg/dL (8.4-10.2); Carbon Dioxide 25 mmol/L (22-30); Chloride 94 mmol/L (98-107); Estimated CRCL calculation 75 ml/min; Estimated Glomerular Filt Rate > 60; Glucose 104 mg/dL (65-110); Potassium 4.2 mmol/L (3.4-5.0); Sodium 127 mmol/L (137-145); Total Protein 8.0 g/dL (6.3-8.2)
[2025-10-08 19:24] LABS: Troponin I < 0.012 ng/mL (0.000-0.034)
[2025-10-08] MEDS: ACETAMINOPHEN 500 MG TABLET 1000 MG PO (19:49)
--- NOTE | 2025-10-08 21:42 | ECG_ITS ---
Test Date: 2025-10-08 21:43:37 Measurements Intervals [place] Rate: 59 P: 45 [place]: 172 QRS: 37 QRSD: 87 T: 46 QT: 420 QTc: 419 Interpretive Statements SINUS BRADYCARDIA POSSIBLE LEFT ATRIAL ENLARGEMENT BORDERLINE ECG Compared to ECG 10/08/2025 18:28:20 NO SIGNIFICANT CHANGE Electronically Signed On 10-09-2025 06:54:12 [employer] ARCHITECT by Danilo Weiss D.O.
[2025-10-08 22:02] LABS: Troponin I < 0.012 ng/mL (0.000-0.034)
--- NOTE | 2025-10-08 22:10 | ED.GENADULT ---
HPI - General Adult General Chief complaint: Recheck/Abnormal Lab/Rx Stated complaint: htn Time Seen by Provider: 10/08/25 16:58 Limitations: language barrier History of Present Illness HPI narrative: 64-year-old female presenting with concerns for high blood pressure. Patient states she got sick last Tuesday with subjective fevers and voice hoarseness. This past Tuesday she was given antibiotics at urgent care. Patient reports that when her blood pressure is high she is able to tell as she gets lightheaded and jittery and begins to have chest pressure. She is presently reporting chest pressure/epigastric pain. Denies shortness of breath, cough, fevers/chills. Related Data Home Medications ?Medication ?Instructions ?Recorded ?Confirmed ?Last Taken ?Type rosuvastatin 10 mg tablet (Crestor) 10 mg PO DAILY 06/10/23 06/10/23 Unknown History losartan 50 mg tablet mg 10/04/25 Unknown History Allergies Allergy/AdvReac Type Severity Reaction Status Date / Time No Known Allergies Allergy Verified 10/08/25 14:45 Review of Systems Review of Systems: All systems reviewed & are unremarkable except as noted in HPI and below PMFSH Past Medical History Medical History History of hyperlipidemia History of hypertension Social History Social History Smoking status: Never smoker Exam Narrative: GENERAL: Well-appearing, well-nourished, and in no acute distress. HEAD: Normocephalic, atraumatic. EYES: PERRLA and EOMI. ENT: Nares clear, no rhinorrhea or epistaxis. Mucous membranes moist. Oropharynx without tonsillar hypertrophy exudate or other lesions. Bilateral TMs pearly [place] non-bulging NECK: Supple. No adenopathy or masses. No carotid bruits or JVD CHEST: Clear to auscultation. No respiratory distress. No wheezes rales or rhonchi HEART: Regular rate and rhythm. No murmur heard. Normal peripheral pulses. ABDOMEN: Soft, nontender, nondistended, normal active bowel sounds. EXTREMITIES: Normal range of motion. No edema. SKIN: Warm, dry, no rash. NEURO: A&O X3. Speech clear. Follows commands. CN II-XII intact. Sensation grossly intact. Steady gait. No ataxic movements. Strength 5/5 in upper and lower extremities bilaterally. [id number] testing intact bilaterally. No pronator drift. PSYCH: Normal mood and affect Course Vital Signs Vital signs: Vital Signs Temperature 98.3 F 10/08/25 14:54 Pulse Rate 73 10/08/25 14:54 Respiratory Rate 16 10/08/25 14:54 Blood Pressure 189/99 H 10/08/25 14:54 Pulse Oximetry 100 10/08/25 14:54 Oxygen Delivery Room Air 10/08/25 14:54 Temperature 98 F 10/08/25 22:38 Pulse Rate 61 10/08/25 22:38 Respiratory Rate 12 10/08/25 22:38 Blood Pressure 121/64 10/08/25 22:38 Pulse Oximetry 96 10/08/25 22:38 Oxygen Delivery Room Air 10/08/25 14:54 MDM MDM Narrative Medical decision making narrative: 64-year-old female presenting with concerns for high blood pressure. Patient states she got sick last Tuesday with subjective fevers and voice hoarseness. This past Tuesday she was given antibiotics at urgent care. Patient reports that when her blood pressure is high she is able to tell as she gets lightheaded and jittery and begins to have chest pressure. She is presently reporting chest pressure/epigastric pain. Denies shortness of breath, cough, fevers/chills. Upon my initial assessment patient appears nontoxic with stable vitals with a blood pressure of 139/76. Patient's EKGs and labs are without significant high risk changes. EKG w/o acute ischemic changes. Troponin negative. Cardiac risk factors reviewed. HEART score = 2. Patient is felt likely low risk for ACS and reasonable for further risk stratification testing as an outpatient. Pain was not sudden or maximal in onset without tearing or ripping quality. No other signs or symptoms to suggest aortic dissection. A low-risk Wells criteria is noted, D-dimer within normal limits, PE is felt to be unlikely. No pneumonia seen on evaluation today. CT abdomen pelvis demonstrated no acute abnormalities. Tylenol improved patient's headache. Bp was 121/64 during final discussions. Patient is felt to be a reasonable candidate for continued evaluation as an outpatient. Given reasons return. Differential Diagnosis Differential Diagnosis: Differential diagnostic considerations for chest pain include ACS, aortic dissection, pneumothorax, pulmonary embolus, lorri/pericarditis, angina, STEMI, esophageal abnormality, GI etiology, pneumonia, rib fracture, biliary colic, atypical/non-cardiac (MSK, etc). Medical Records I have reviewed the following patient records and this information was taken into consideration when formulating the assessment and plan.: previous labs, previous ER visits and previous clinic visits Lab Data MDM Lab Attestation statement: I personally reviewed the patient's lab results. 10/08/25 18:27 10/08/25 18:27 Labs: Lab Results 10/08/25 10/08/25 Range/Units 18:27 21:35 WBC 5.6 (4.5-10.0) K/mm3 RBC 4.15 L (4.2-5.4) M/mm3 Hgb 13.5 (12.0-15.0) g/dL Hct 38.7 (37.0-47.0) % MCV 93.3 (80-100) fl MCH 32.5 (26-34) pg MCHC 34.9 (32-36) g/dl RDW 13.9 (11.5-14.5) % Plt Count 290 (150-375) k/mm3 MPV 10.1 (7.4-10.4) fl Immature Gran % (Auto) 0.5 (0-0.5) % Neut % (Auto) 47.7 (45.5-73.1) % Lymph % (Auto) 32.3 (18.3-44.2) % [place] % (Auto) 16.3 H (2.6-8.5) % Eos % (Auto) 2.3 (0-4.4) % Baso % (Auto) 0.9 (0.2-1.2) % Lymph # (Auto) 1.80 (0.9-3.2) K/mm3 [place] # (Auto) 0.9 H (0.1-0.6) K/mm3 Eos # (Auto) 0.1 (0-0.3) K/mm3 Baso # (Auto) 0.1 (0.0-0.1) K/mm3 Abs Immat Gran (auto) 0.03 (0.00-0.031) K/mm3 Absolute Neuts (auto) 2.7 (1.3-6.7) K/mm3 Absolute Nucleated RBC 0.000 (0.0-0.012) K/mm3 Nucleated RBC % 0.0 (0.0-0.2) % PT 12.5 (11.1-14.7) Seconds INR 0.9 APTT 28.0 (22.3-36.8) Seconds D-Dimer 0.47 (<0.48) ug/mL Sodium 127 L (137-145) mmol/L Potassium 4.2 (3.4-5.0) mmol/L Chloride 94 L (98-107) mmol/L Carbon Dioxide 25 (22-30) mmol/L Anion Gap 8 (4-12) mmol/L BUN 9 (7-17) mg/dL Creatinine 0.56 L (0.7-1.0) mg/dL Estim Creat Clear Calc 75 ml/min Estimated GFR > 60 (59 - ) Glucose 104 (65-110) mg/dL Calcium 9.9 (8.4-10.2) mg/dL Total Bilirubin 0.6 (0.2-1.3) mg/dL AST 42 H (14-36) U/L ALT 25 (6-35) U/L Alkaline Phosphatase 56 (38-126) U/L Troponin I < 0.012 < 0.012 (0.000-0.034) ng/mL Total Protein 8.0 (6.3-8.2) g/dL Albumin 4.7 (3.5-5.1) g/dL Urine Color Yellow (Yellow) Urine Appearance Clear (Clear) Urine pH 7.0 (5.0-9.0) Ur Specific [place] 1.003 (1.001-1.035) Urine Protein Negative (Negative) mg/dL Urine Glucose (UA) Negative (Negative) mg/dL Urine Ketones Trace H (Negative) mg/dL Ur Blood (Man) Negative (Negative) Urine Nitrate Negative (Negative) Urine Bilirubin Negative (Negative) Urine Urobilinogen 0.2 (<2.0) mg/dL Leukocyte Esterase Rfl Negative (Negative) BETO/UL Imaging Data Attestation: I personally reviewed and interpreted this imaging study as follows: Radiologist's impression: ITS Impressions Chest X-Ray 10/08/25 18:02 IMPRESSION: 1: NO ACUTE CARDIOPULMONARY DISEASE. Abdomen/Pelvis CT 12/23/25 19:48 IMPRESSION: 1. Pelvic venous insufficiency. 2. Large volume of stool in the colon. Discharge Plan Discharge Clinical Impression: Hypertension, uncontrolled Patient Disposition: Home Condition: Stable Instructions: Hypertension (ED) Additional Instructions: Return to the emergency department if you experience fever, chest pain, shortness of breath, abdominal pain with nausea and vomiting, weakness, numbness/tingling, or any other symptoms that are concerning to you. Follow up with primary care doctor for further workup and treatment. Patient Language: [place] Prescriptions: No Action losartan 50 mg tablet amoxicillin-pot clavulanate 875-125 mg tablet 1 tablet PO Q12H 7 Days Qty: 14 0RF rosuvastatin [Crestor] 10 mg tablet 10 mg PO DAILY Follow-up/Referrals: PHYSICIAN NOT ON STAFF,NONSTAFF [Primary Care Provider] Quality HEART score for chest pain patients History: slightly suspicious ECG: normal Age: > 45 and < 65 years Risk factors: 1 or 2 risk factors Troponin: < or = to 1x normal limit Heart score: 2
== END 2025-10-08 22:15 | disposition home or self-care (01) ==
DX: I10 Essential (primary) hypertension (principal); E78.5 Hyperlipidemia, unspecified; R00.1 Bradycardia, unspecified; R94.31 Abnormal electrocardiogram [ECG] [EKG]
CPT/HCPCS: 36415; 71046; 74177; 80053; 81003; 84484; 85025; 85380; 85610; 85730; 93005; 99284; A9270; Q9967